=== PATIENT | male | born 1965 | race Caucasian/White ===

== ENCOUNTER 2016-12-06 10:40 | Inpatient (IN) | payer OTHER ==
[~2016-12-06] VITALS: Ht 170.2 cm; Wt 75.7 kg
[~2016-12-06 10:40] MED LIST: BNT10 PO; CYAN3INJ IM; FENO48TA9 PO; GLYB-108 PO
[2016-12-06] MEDS ORDERED: SODIUM CHLORIDE 0.9% 1000ML 1,000 ML IV SCH (11:09)
[2016-12-06] MEDS ORDERED: SODIUM CHLORIDE 0.9% 1000ML 1,000 ML IV STA (11:10)
[2016-12-06] MEDS ORDERED: ONDANSETRON INJ 2 MG/ML 2 ML VIAL IV STA (11:10)
[2016-12-06] MEDS ORDERED: KETOROLAC TROMETHAMINE 30 MG/ML VIAL IV STA (11:23)
[2016-12-06 11:30] LABS: BASO % 0.3 %; BASO ABS # 0.03 K/uL (0-0.2); COMPLETE YES; EOS % 1.4 %; HEMATOCRIT 47.8 % (42-52); IG% 0.4 %; LYMPH % 23.2 %; LYMPH ABS # 2.11 K/uL (1.2-3.4); MEAN CELL VOLUME 83.6 fL (80-100); MEAN CORPUSCULAR HGB CONC 34.7 g/dl (32-36); MONO % 7.6 %; NEUT % 67.1 %; PLATELET COUNT 208 K/uL (130-400); RED BLOOD COUNT 5.72 M/uL (4.7-6.1); WHITE BLOOD COUNT 9.08 K/uL (4.8-10.8)
[2016-12-06 11:39] LABS: PROTHROMBIN TIME (PATIENT) 10.2 SECONDS (9.0-12.0)
--- NOTE | 2016-12-06 11:46 | DIAGNOSTIC IMAGING REPORT ---
CHEST ONE VIEW PORTABLE CLINICAL HISTORY: Stroke SLURRED SPEECH. DOUBLE VISION. COMPARISON STUDY: No previous studies for comparison. FINDINGS: The cardiac and mediastinal contours are normal. There is no evidence of focal pulmonary consolidation. There is no evidence of failure. No pleural effusions are visualized.[ IMPRESSION: No active disease in the chest. Electronically signed by: Kali Eastman M.D. 12/06/2016 11:45 AM Dictated Date/Time: 12/06/2016 11:45 AM
[2016-12-06 11:47] LABS: ALT/SGPT 27 U/L (12-78); BLOOD UREA NITROGEN 13 mg/dl (7-18); BUN/CREATININE RATIO 11.5 (10-20); CARBON DIOXIDE 28 mmol/L (21-32); CHLORIDE 103 mmol/L (98-107); GLUCOSE 126 mg/dl (70-99); POTASSIUM 3.9 mmol/L (3.5-5.1); SODIUM 141 mmol/L (136-145)
[2016-12-06 11:48] LABS: CALCIUM 9.3 mg/dl (8.5-10.1)
--- NOTE | 2016-12-06 11:51 | DIAGNOSTIC IMAGING REPORT ---
CT HEAD WITHOUT CONTRAST (CT) CLINICAL HISTORY: Stroke TRAUMA. DOUBLE VISION. COMPARISON STUDY: No previous studies for comparison. TECHNIQUE: Axial CT of the brain is performed from the vertex to the skull base. IV contrast was not administered for this examination. CT DOSE: 690.05 mGycm FINDINGS: No intra or extra-axial mass lesions are visualized. There is no CT evidence of acute cortical infarction. There is no evidence of midline shift. There is no acute hemorrhage. No calvarial fractures are visualized. There are minimal white matter hypodensities likely on a small vessel basis. A left basal ganglia hypodensity, likely represents either a lacunar infarct or prominent CSF space. There is no evidence of pathologic ventricular dilatation. There is no evidence of acute sinusitis IMPRESSION: No acute intracranial findings Electronically signed by: Kali Eastman M.D. 12/06/2016 11:50 AM Dictated Date/Time: 12/06/2016 11:49 AM
[2016-12-06 11:52] LABS: ALKALINE PHOSPHATASE 84 U/L (45-117); AST/SGOT 19 U/L (15-37); CKMB/CK RATIO 0.9 (0-3.0)
[2016-12-06] MEDS ORDERED: ATOR10TA82 PO (11:58)
[2016-12-06] MEDS ORDERED: GLYB2.5T7 PO (11:58)
[2016-12-06] MEDS ORDERED: MoRPHine SULFATE 4 MG/ML 1 ML CARP\\VIAL IV STA (12:09)
[2016-12-06] MEDS ORDERED: ASPIRIN 325 MG ECTAB PO ONE (13:15)
[2016-12-06] MEDS ORDERED: ACET325T96 PO (13:59)
[2016-12-06] MEDS ORDERED: MULT-506 PO (13:59)
[2016-12-06] MEDS ORDERED: OMEG10007 PO (13:59)
[2016-12-06] MEDS ORDERED: DIPH25CA65 PO (13:59)
[2016-12-06 14:00] VITALS: O2SAT 98; Ht 170.2 cm; Wt 75.7 kg
[2016-12-06] MEDS ORDERED: GLUCOSE 40% GEL 15 GM TUBE PO PRN (14:00)
[2016-12-06] MEDS ORDERED: PHARMACIST DISCHARGE MED REC CONSULT PRN (14:00)
[2016-12-06] MEDS ORDERED: DEXTROSE 50% 50 ML SYR IV PRN (14:00)
[2016-12-06] MEDS ORDERED: GLUCAGON FOR INJ 1 MG VIAL SQ PRN (14:00)
[2016-12-06] MEDS ORDERED: GLUCOSE 10 TABS/TUBE PO PRN (14:00)
[2016-12-06] MEDS ORDERED: ONDANSETRON INJ 2 MG/ML 2 ML VIAL IV PRN (14:15)
[2016-12-06] MEDS ORDERED: ACETAMINOPHEN 325 MG TAB PO PRN (14:15)
[2016-12-06 14:39] VITALS: BP 123/65; PULSE 63; TEMP 36.6; O2SAT 99
[2016-12-06 14:44] LABS: ESTIMATED AVERAGE GLUCOSE 148 mg/dl; HA1C FLAG Normal (Normal)
--- NOTE | 2016-12-06 14:47 | History and Physical ---
History & Physical Date & Time of Service: Dec 06, 2016 at 14:06 Chief Complaint: Slurred Speech, Double Vision, Lethargy, Fall Primary Care Physician: Chapo Cifuentes PA-C History of Present Illness Source: patient, family (sister at bedside who is a nurse), other (no clinic records available) This is a 50 year old male with PMH of DM type 2, hyperlipidemia, fibromyalgia, and other problems listed below who presents to the ED for neurological symptoms. Patient states over past few months has gradually progressive balance difficulty with frequent falls, coordination problems, word finding difficulty dizziness, lethargy, weakness of the bilateral arms and legs, worsening of chronic bilateral LE numbness. He reports he is no longer able to drive. He also admits to few months of worsening diplopia, vertigo with positional change , tinnitus, lightheadedness/ pre-syncopal episodes, increasingly frequent frontal headaches. He reports frequent falls. Two weeks ago he injured his right shoulder catching himself from a fall and has right shoulder pain and weakness since that time. He reports hitting his head multiple times. He dropped a heavy object on top of his head and has c-spine pain since that time. He did not have evaluation/ imaging for his symptoms. He was seen at [facility] yesterday for labs and was told to come to the ER. Has occasional palpitations. He reports awakening from apnea episodes overnight and daytime somnolence. Has not been tested for sleep apnea. Has noted occasional throbbing pains in right lateral chest which come at random. Appetite is low. Has constipation with mild low abdominal cramping. Last BM 2d ago. Had hypoglycemia a few days ago which was symptomatic. He skips glyburide if BSG is low. He denies fever, syncope, hearing loss, cough, SOB, N/V, urinary changes, rash or tick bite. No known hx of arrhythmia. Past Medical/Surgical History Medical Problems: (1) Diabetes mellitus type 2 Status: Chronic (2) Dyslipidemia Status: Chronic (3) fibromyalgia Status: Chronic (4) History of air embolism Permanent Comment: in due to [place] accident Status: Chronic Surgical Problems: (1) H/O colonoscopy Status: Chronic (2) H/O eye surgery Permanent Comment: as and in 2007 x 2 Status: Chronic (3) H/O knee surgery Status: Chronic Family History Diabetes mellitus FATHER FH: CAD (coronary artery disease) FATHER Hypertension FATHER Social History Smoking Status: Never Smoker Alcohol Use: none Marital Status: Housing status: lives with family (currently staying with sister) Occupational Status: unemployed Immunizations History of Influenza Vaccine: No History of Tetanus Vaccine?: Yes History of Pneumococcal: No History of Hepatitis B Vaccine: Yes Multi-Drug Resistant Organisms History of MDRO: No Allergies Coded Allergies: No Known Allergies (Unverified , 12/06/16) Home Medications Scheduled Atorvastatin (Lipitor), 10 MG PO DAILY Fish Oil ([place]-3), 1 CAP PO DAILY Glyburide (Diabeta), 2.5 MG PO DAILY Multivitamin (Multivitamin), 1 TAB PO DAILY Scheduled PRN Acetaminophen Tab (Tylenol), 650 MG PO Q4 PRN for Pain Diphenhydramine Hcl (Benadryl Allergy), 1 CAP PO HS PRN for Sleep Review of Systems Ten systems reviewed and negative except as noted in HPI. Physical Exam Vital Signs Date Time Temp Pulse Resp B/P (MAP) Pulse Ox O2 Delivery O2 Flow Rate FiO2 12/06/16 13:06 58 12/06/16 12:42 55 18 120/80 98 Room Air 12/06/16 11:27 63 18 136/80 99 Room Air 12/06/16 11:21 99 Room Air 12/06/16 10:58 66 12/06/16 10:47 36.6 80 18 126/85 97 Room Air General Appearance: WD/WN, no apparent distress, + pertinent finding (alert 50 year old male, sister at bedside) Head: normocephalic, atraumatic Eyes: normal inspection, PERRL, EOMI, sclerae normal ENT: hearing grossly normal, pharynx normal Neck: supple, no carotid bruits, trachea midline, + pertinent finding (diffuse mild tenderness cervical paraspinal muscles. no pain in c-spine rotation. ) Respiratory/Chest: lungs clear, normal breath sounds, no respiratory distress, no accessory muscle use Cardiovascular: regular rate, rhythm, no murmur Abdomen/GI: normal bowel sounds, soft, + pertinent finding (minimally tender in LLQ) Back: normal inspection, + pertinent finding (no thoracic or lumbar spinal or paraspinal tendernes) Extremities/Musculoskelatal: no calf tenderness, no pedal edema, + pertinent finding (right anterior shoulder tender to palpation. + mild pain with R shoulder ROM. ) Neurologic/Psych: cooler servicer II-XII nml as tested, no motor/sensory deficits, alert, normal mood/affect, oriented x 3, + pertinent finding (mildly abnormal finger to nose testing) Skin: normal color, warm/dry Diagnostics Laboratory Results Results Past 24 Hours Test 12/06/16 11:09 12/06/16 11:20 12/06/16 11:21 12/06/16 13:51 Range/Units Bedside Glucose 121 70-99 mg/dl White Blood Count 9.08 4.8-10.8 K/uL Red Blood Count 5.72 4.7-6.1 M/uL Hemoglobin 16.6 14.0-18.0 g/dL Hematocrit 47.8 42-52 % Mean Corpuscular Volume 83.6 80-100 fL Mean Corpuscular Hemoglobin 29.0 25-34 pg Mean Corpuscular Hemoglobin Concent 34.7 32-36 g/dl Platelet Count 208 130-400 K/uL Mean Platelet Volume 11.0 7.4-10.4 fL Neutrophils (%) (Auto) 67.1 % Lymphocytes (%) (Auto) 23.2 % Monocytes (%) (Auto) 7.6 % Eosinophils (%) (Auto) 1.4 % Basophils (%) (Auto) 0.3 % Neutrophils # (Auto) 6.08 1.4-6.5 K/uL Lymphocytes # (Auto) 2.11 1.2-3.4 K/uL Monocytes # (Auto) 0.69 0.11-0.59 K/uL Eosinophils # (Auto) 0.13 0-0.5 K/uL Basophils # (Auto) 0.03 0-0.2 K/uL RDW Standard Deviation 36.8 36.4-46.3 fL RDW Coefficient of Variation 12.1 11.5-14.5 % Immature Granulocyte % (Auto) 0.4 % Immature Granulocyte # (Auto) 0.04 0.00-0.02 K/uL Prothrombin Time 10.2 9.0-12.0 SECONDS Prothromb Time International Ratio 1.0 0.9-1.1 Activated Partial Thromboplast Time 26.3 21.0-31.0 SECONDS Partial Thromboplastin Ratio 1.0 Sodium Level 141 136-145 mmol/L Potassium Level 3.9 3.5-5.1 mmol/L Chloride Level 103 98-107 mmol/L Carbon Dioxide Level 28 21-32 mmol/L Anion Gap 10.0 3-11 mmol/L Blood Urea Nitrogen 13 7-18 mg/dl Creatinine 1.10 0.60-1.40 mg/dl Est Creatinine Clear Calc Drug Dose 75.1 ml/min Estimated GFR () 90.2 Estimated GFR (Non- 77.9 BUN/Creatinine Ratio 11.5 10-20 Random Glucose 126 70-99 mg/dl Calcium Level 9.3 8.5-10.1 mg/dl Total Bilirubin 1.0 0.2-1 mg/dl Direct Bilirubin 0.2 0-0.2 mg/dl Aspartate Amino Transf (AST/SGOT) 19 15-37 U/L Alanine Aminotransferase (ALT/SGPT) 27 12-78 U/L Alkaline Phosphatase 84 45-117 U/L Total Creatine Kinase 148 39-308 U/L Creatine Kinase MB 1.4 0.5-3.6 ng/ml Creatine Kinase MB Ratio 0.9 0-3.0 Troponin I < 0.015 0-0.045 ng/ml Total Protein 7.6 6.4-8.2 gm/dl Albumin 4.0 3.4-5.0 gm/dl Lipase 130 73-393 U/L Lyme Disease IgM Antibody NEG NEG Bedside Prothrombin Time INR 1.0 0.9-1.[address] HEAD WITHOUT CONTRAST (CT) CLINICAL HISTORY: Stroke TRAUMA. DOUBLE VISION. COMPARISON STUDY: No previous studies for comparison. TECHNIQUE: Axial CT of the brain is performed from the vertex to the skull base. IV contrast was not administered for this examination. CT DOSE: 690.05 mGycm FINDINGS: No intra or extra-axial mass lesions are visualized. There is no CT evidence of acute cortical infarction. There is no evidence of midline shift. There is no acute hemorrhage. No calvarial fractures are visualized. There are minimal white matter hypodensities likely on a small vessel basis. A left basal ganglia hypodensity, likely represents either a lacunar infarct or prominent CSF space. There is no evidence of pathologic ventricular dilatation. There is no evidence of acute sinusitis IMPRESSION: No acute intracranial findings CHEST ONE VIEW PORTABLE CLINICAL HISTORY: Stroke SLURRED SPEECH. DOUBLE VISION. COMPARISON STUDY: No previous studies for comparison. FINDINGS: The cardiac and mediastinal contours are normal. There is no evidence of focal pulmonary consolidation. There is no evidence of failure. No pleural effusions are visualized.[ IMPRESSION: No active disease in the chest. EKG normal sinus rhythm, no ectopy, no ST or T wave abnormality Impression Assessment and Plan PROGRESSIVE NEUROLOGICAL SYMPTOMS Presents with few months worsening balance and coordination difficulty, speech difficulty, diplopia, general weakness, increasing bilateral LE numbness CT head- no acute findings, + minimal white matter hypodensities likely on a small vessel basis, + L basal ganglia hypodensity ?lacunar infarct or prominent CSF space Rule out CVA (risk factors DM, dyslipidemia) or other intracranial pathology, check for vitamin deficiencies- B12, thiamine, folate Check MRI brain with and without contrast, MRA brain, MRA neck, echo with bubble study, monitor for arrhythmia Give aspirin 325 mg today then 81 mg daily Increase atorvastatin to 40 mg for now; check fasting lipid panel in am Neuro checks Fall precautions PT, OT, speech evaluations Consult neurology- Isela Keane aware, appreciate input C-SPINE PAIN Check x-ray of c-spine RIGHT SHOULDER PAIN Check x-ray right shoulder DM TYPE 2 Hold glyburide during hospitalization Novolog sliding scale coverage Check A1c DYSLIPIDEMIA Atorvastatin increased to 40 mg Check fasting lipid panel CONSTIPATION Tried Metamucil at home Declines bowel regimen for now- wants to try high fiber food FULL CODE DVT PROPHYLAXIS Lovenox SQ DISPOSITION Living with sister Currently seeing DASH Cifuentes at [facility] Patient seen in collaboration with Dr. Nguyen. Please see his addendum Agree with above h and p.Briefly 50yM presents with ongoing neurological symptoms for several months but progressively getting worse. Says having balance issues, feeling dizzy, has ringing in ears, cannot hold things properly.HAs blurred vision. sometimes has weord finding diffuclty.[place] says he is mostly vegetarian and eats fish once in while and doesn't take dairy products. Was on vitamin b12 shots before but currently taking only multi vitamins.HAs chronic weakness in right upper extremity p/e Ge not in distress Cvs s1 and s2 heard no murmurs Rs cta b/l no added sounds Abd benign Emergency Telecommunications Dispatcher power in extremities 5/5 except in right uper extremity 3/5 no pronator drift finger nose test normal heel to morton test normal sensations intact a/p Progressive neurological symptoms reviewed ct head will f/u mri/mra head hx of vitamin b12 deficiency and mostly vegetarian will f/u vitamin b12, b1 and folate levels consult neurology pt/ot Hyperlipidemia on statin f/u lipid profile VTE Prophylaxis VTE Risk Assessment Done? Y/N: Yes Risk Level: Moderate
--- NOTE | 2016-12-06 15:47 | DIAGNOSTIC IMAGING REPORT ---
CERVICAL SPINE 3 VIEWS CLINICAL HISTORY: neck pain right shoulder pain COMPARISON STUDY: No previous studies for comparison. FINDINGS: The prevertebral soft tissues are normal. No fractures or subluxations are visualized. Minor degenerative changes are evident. IMPRESSION: Minor degenerative change. No fractures, subluxations, or destructive lesions are visualized. Electronically signed by: Kali Eastman M.D. 12/06/2016 3:46 PM Dictated Date/Time: 12/06/2016 3:45 PM
--- NOTE | 2016-12-06 15:48 | DIAGNOSTIC IMAGING REPORT ---
RIGHT SHOULDER MIN 2 VIEWS ROUTINE CLINICAL HISTORY: Right shoulder pain. COMPARISON: None FINDINGS: Alignment of the right shoulder is anatomic. Equivocal slight elevation of the distal right clavicle is likely within normal limits. There is moderate AC joint arthrosis. There is mild glenohumeral joint arthrosis. IMPRESSION: 1. No acute fracture. 2. Moderate right acromioclavicular joint osteoarthritis and mild glenohumeral osteoarthritis. Electronically signed by: Leeroy Venegas M.D. 12/06/2016 3:47 PM Dictated Date/Time: 12/06/2016 3:45 PM
[2016-12-06 16:00] VITALS: O2SAT 99
[2016-12-06] MEDS ORDERED: ENOXAPARIN 40 MG/0.4 ML SYR SC SCH (16:00)
[2016-12-06] MEDS ORDERED: LORAZEPAM 0.5 MG TAB ONE (16:29)
[2016-12-06] MEDS ORDERED: LORAZEPAM 0.5 MG TAB PO SCH (16:30)
--- NOTE | 2016-12-06 16:52 | Neurology Consultation ---
Neurology Consultation Date of Consultation: Dec 06, 2016. Attending Physician: Sheila Espinoza M.D. Primary Care Physician: Chapo Cifuentes PA-C Reason for Consultation: balance and sleep difficulties History of Present Illness Source: patient Tra is a 50 year old male with PMH - DM type 2, hyperlipidemia, fibromyalgia , He complains of balance issues over the past 2-3 months has gradually progressive balance difficulty with frequent falls, coordination problems, word finding difficulty dizziness, lethargy, weakness of the bilateral arms and legs , worsening of chronic bilateral UE/LE numbness. He is no longer driving due to the motion of the car causing dizziness. He has had episodes of double vision and blurred vision, vertigo with positional changes and motion, tinnitus ( approximately 4 years), lightheadedness/ pre-syncopal episodes, increasingly frequent frontal headaches. Two weeks ago he injured his right shoulder catching himself from a fall and has right shoulder pain and weakness since that time. He dropped a heavy object on top of his head and has c-spine pain since that time. He was not evaluated for the injury. He was seen at [facility] yesterday for labs and was told to come to the ER. He has episodes of apnea and then day time drowsiness and lethargy. His appetite is not good and he gets easily constipated although he is eating his lunch without difficulty. Had hypoglycemia a few days ago which was symptomatic. He denies fever, syncope, hearing loss, cough, SOB, N/V, urinary changes, rash or tick bite. no family history of neurologic disease, stroke. he states he has all the symptoms of a chiari malformation. Social History Smoking Status: Never smoker Alcohol Use: none Marital Status: Housing Status: lives with family Occupation Status: unemployed Allergies Coded Allergies: No Known Allergies (Unverified , 12/06/16) Current Inpatient Medications Current Inpatient Medications Medications (Trade) Dose Ordered Sig/Michelle Route Start Time Stop Time Status Last Admin Dose Admin Atorvastatin Calcium (Lipitor Tab) 40 mg HS PO 12/06/16 21:00 01/05/17 20:59 Aspirin (Ecotrin Tab) 81 mg QAM PO 12/07/16 09:00 01/06/17 08:59 Miscellaneous Information (Pharmacist Discharge Med Rec Consult) 1 ea UD PRN N/A 12/06/16 14:00 01/05/17 13:59 Fish Oil ([place]-3 (Purified Fish Oil) Cap) 1 gm DAILY PO 12/07/16 09:00 01/06/17 08:59 Multivitamins (Multivitamin Tab) 1 tab DAILY PO 12/07/16 09:00 01/06/17 08:59 Insulin Aspart (novoLOG ASPART) SLIDING SCALE If C... ACHS SC 12/06/16 16:30 01/05/17 16:29 Glucose (Glucose 40% Gel) 15-30 GRAMS 15 GRAMS... UD PRN PO 12/06/16 14:00 01/05/17 13:59 Glucose (Glucose Chew Tab) 4-8 Tablets 4 Tabl... UD PRN PO 12/06/16 14:00 01/05/17 13:59 Dextrose (Dextrose 50% 50ML Syringe) 25-50ML OF 50% DW IV FOR... UD PRN IV 12/06/16 14:00 01/05/17 13:59 Glucagon (Glucagon Inj) 1 mg UD PRN SQ 12/06/16 14:00 01/05/17 13:59 Enoxaparin Sodium (Lovenox Inj) 40 mg Q24H SC 12/06/16 16:00 01/05/17 15:59 Acetaminophen (Tylenol Tab) 650 mg Q4H PRN PO 12/06/16 14:15 01/05/17 14:14 Ondansetron HCl (Zofran Inj) 4 mg Q6H PRN IV 12/06/16 14:15 01/05/17 14:14 Physical Exam Vital Signs (Past 24 Hrs): Date Time Temp Pulse Resp B/P (MAP) Pulse Ox O2 Delivery O2 Flow Rate FiO2 12/06/16 14:39 36.6 63 18 123/65 (84) 99 Room Air 12/06/16 14:27 66 15 124/80 98 Room Air 12/06/16 14:00 98 Room Air 12/06/16 13:06 58 12/06/16 12:42 55 18 120/80 98 Room Air 12/06/16 11:27 63 18 136/80 99 Room Air 12/06/16 11:21 99 Room Air 12/06/16 10:58 66 12/06/16 10:47 36.6 80 18 126/85 97 Room Air Physical Exam: Constitutional: appearance nourished, healthy and normal Ears, Nose, Mouth and Throat: mucous membranes moist, no injection and skin normal, eyes normal Cardiovascular: normal S-1 and S-2 and regular rate and rhythm Respiratory: clear to auscultation (CTA) and no rales, rhonchi or wheeze Musculoskeletal: no peripheral edema and good distal pulses Skin: no stigmata of neurocutaneous disease noted and normal and intact Eyes: extraocular muscles intact (EOMI) and pupils equal, round and reactive to light (PERRL) NEUROLOGIC EXAMINATION: Mental status: Alert and interactive Oriented to full date and location Oriented to person Speech fluent with no evidence of aphasia Cranial Nerves smile eye brow raise symmetric, tongue midline Reflexes: Deep tendon reflexes were symmetrical and graded 2/5. Plantar responses were flexor. Sensory: decreased sensation to pin prick inner calf and left arm, cool touch bilaterally decreased inner calf thigh, GT proprioception intact bilaterally Adelia bilaterally with no nystagmus or reproduction of symptoms Coordination: Romberg absent Gait/Stance: Posture normal. stands without assistance tandem gait, good arm swing Motor: Negative for pronator drift of out stretched arms with eyes closed. Strength: biceps triceps deltoid hand lead printer 5/5 bilaterally, hip flex 5/5 bilaterally Laboratory Results Past 24 Hours: 12/06/16 11:20 Red Blood Count 5.72, Mean Corpuscular Volume 83.6, Mean Corpuscular Hemoglobin 29.0, Mean Corpuscular Hemoglobin Concent 34.7, Mean Platelet Volume 11.0, Neutrophils (%) (Auto) 67.1, Lymphocytes (%) (Auto) 23.2, Monocytes (%) (Auto) 7.6, Eosinophils (%) (Auto) 1.4, Basophils (%) (Auto) 0.3, Neutrophils # (Auto) 6.08, Lymphocytes # (Auto) 2.11, Monocytes # (Auto) 0.69, Eosinophils # (Auto) 0.13, Basophils # (Auto) 0.03 12/06/16 11:20 Test 12/06/16 11:09 12/06/16 11:20 12/06/16 11:21 12/06/16 15:13 Bedside Glucose 121 mg/dl (70-99) White Blood Count 9.08 K/uL (4.8-10.8) Red Blood Count 5.72 M/uL (4.7-6.1) Hemoglobin 16.6 g/dL (14.0-18.0) Hematocrit 47.8 % (42-52) Mean Corpuscular Volume 83.6 fL (80-100) Mean Corpuscular Hemoglobin 29.0 pg (25-34) Mean Corpuscular Hemoglobin Concent 34.7 g/dl (32-36) Platelet Count 208 K/uL (130-400) Mean Platelet Volume 11.0 fL (7.4-10.4) Neutrophils (%) (Auto) 67.1 % Lymphocytes (%) (Auto) 23.2 % Monocytes (%) (Auto) 7.6 % Eosinophils (%) (Auto) 1.4 % Basophils (%) (Auto) 0.3 % Neutrophils # (Auto) 6.08 K/uL (1.4-6.5) Lymphocytes # (Auto) 2.11 K/uL (1.2-3.4) Monocytes # (Auto) 0.69 K/uL (0.11-0.59) Eosinophils # (Auto) 0.13 K/uL (0-0.5) Basophils # (Auto) 0.03 K/uL (0-0.2) RDW Standard Deviation 36.8 fL (36.4-46.3) RDW Coefficient of Variation 12.1 % (11.5-14.5) Immature Granulocyte % (Auto) 0.4 % Immature Granulocyte # (Auto) 0.04 K/uL (0.00-0.02) Prothrombin Time 10.2 SECONDS (9.0-12.0) Prothromb Time International Ratio 1.0 (0.9-1.1) Activated Partial Thromboplast Time 26.3 SECONDS (21.0-31.0) Partial Thromboplastin Ratio 1.0 Anion Gap 10.0 mmol/L (3-11) Est Creatinine Clear Calc Drug Dose 75.1 ml/min Estimated GFR () 90.2 Estimated GFR (Non- 77.9 BUN/Creatinine Ratio 11.5 (10-20) Estimated Average Glucose 148 mg/dl Hemoglobin A1c 6.8 % (4.5-5.6) Calcium Level 9.3 mg/dl (8.5-10.1) Total Bilirubin 1.0 mg/dl (0.2-1) Direct Bilirubin 0.2 mg/dl (0-0.2) Aspartate Amino Transf (AST/SGOT) 19 U/L (15-37) Alanine Aminotransferase (ALT/SGPT) 27 U/L (12-78) Alkaline Phosphatase 84 U/L (45-117) Total Creatine Kinase 148 U/L (39-308) Creatine Kinase MB 1.4 ng/ml (0.5-3.6) Creatine Kinase MB Ratio 0.9 (0-3.0) Troponin I < 0.015 ng/ml (0-0.045) Total Protein 7.6 gm/dl (6.4-8.2) Albumin 4.0 gm/dl (3.4-5.0) Lipase 130 U/L (73-393) Lyme Disease IgM Antibody NEG (NEG) Bedside Prothrombin Time INR 1.0 (0.9-1.1) Imaging CT head - no acute findings Impression 50 year old male with multiple neurologic complains -imaging and labs pending Plan 1. MRI with and without contrast- for any structure issues 2. MRA head and neck- for vascular reasons for dizziness 3. c spine MRI - for any compression causing weakness, numbness, tingling 4. acetylcholine receptor AB, Lyme titer 5. out patient work up with rheumatology for fibromyalgia 6. DM control to avoid any further small fiber disease 7. out patient ophthalmology for any structure issues or vascular issues from DM query blurred?double vision? I have seen and discussed above patient with Dr Jose Ramon Harvey, neurology I have seen this man and examined him briefly en rout to the mri scan historyis longstanding with a host of quasi neurological complaints and with some history to suggest a possible diabetic related small fibe polyneueropathy at most With the variable diplopia and fluctuating weakness and fleeting paresthesias he neds a host of diagnostic studies including nimco of brain and cervical spine, workup for lyme,various connective tissue immunological disorders, myasthenia gravis etc but on exam I am not impressed with any fixed deficits other than perhaps some small fiber sensoy loss. 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
--- NOTE | 2016-12-06 17:00 | EMERGENCY ROOM VISIT NOTE ---
History Report prepared by Viola: Liz Christianson Under the Supervision of: Dr. Tre Abraham D.O. First contact with patient: 10:56 Chief Complaint: STROKE SYMPTOMS Stated Complaint: SLURRED SPEECH, DOUBLE VISION, LETHARGY, FALL History of Present Illness The patient is a 50 year old male who presents to the Emergency Room with complaints of intermittent slurred speech, lethargy, and visual symptoms for the past few months worsening over the past couple of weeks. He has also been experiencing lightheadedness that he states feels like he is going to pass out. He denies feeling like the room is spinning. He notes experiencing this lightheadedness when he is driving in a car around a big bend. These symptoms are worse with movement and changing positions. The patient also reports pain in his arms, legs, and joints. He notes speech stuttering, headaches, double vision, and "equilibrium issues." The equilibrium issues are worse with changing positions and alleviated with staying still. The patient states that his "proprioception is off" and as a result he has been experiencing frequent falls, with his most recent fall occurring yesterday. He fell about 2 months ago and landed on his right arm, since that episode he has been having pain and weakness in the right arm. The patient denies any other focal weakness. He denies cough, rhinorrhea, sore throat, trouble swallowing, and back pain. He has not seen any one for these symptoms because he does not currently have a PCP. The patient has a history of fibromyalgia. He denies any recent changes to his medications. He rates his current pain as a 6/10 in severity. Source of History: patient Onset: a few months ago Position: other (global) Symptom Intensity: 6/10 Quality: other (lightheadedness) Timing: intermittent, worsening Modifying Factors (Worsening): movement Modifying Factors (Relieving): rest Associated Symptoms: + headache, + fatigue, + weakness, No sorethroat, No cough, No back pain Note: Pt notes slurred and stuttering speech, lethargy, visual symptoms, and lightheadedness. Pt notes pain in arms, legs, and joints. Review of Systems See HPI for pertinent positives & negatives. A total of 10 systems reviewed and were otherwise negative. Past Medical & Surgical Medical Problems: (1) Diabetes mellitus type 2 (2) Dyslipidemia (3) fibromyalgia (4) History of air embolism (5) Slurred speech Surgical Problems: (1) H/O colonoscopy (2) H/O eye surgery (3) H/O knee surgery Family History No pertinent history stated. Social History Smoking Status: Never Smoker Alcohol Use: none Drug Use: none Marital Status: Housing Status: lives with family Occupation Status: unemployed Current/Historical Medications Scheduled Atorvastatin (Lipitor), 10 MG PO DAILY Fish Oil ([place]-3), 1 CAP PO DAILY Glyburide (Diabeta), 2.5 MG PO DAILY Multivitamin (Multivitamin), 1 TAB PO DAILY Scheduled PRN Acetaminophen Tab (Tylenol), 650 MG PO Q4 PRN for Pain Diphenhydramine Hcl (Benadryl Allergy), 1 CAP PO HS PRN for Sleep Allergies Coded Allergies: No Known Allergies (Unverified , 12/06/16) Physical Exam Vital Signs Date Time Temp Pulse Resp B/P (MAP) Pulse Ox O2 Delivery O2 Flow Rate FiO2 12/06/16 12:42 55 18 120/80 98 Room Air 12/06/16 11:27 63 18 136/80 99 Room Air 12/06/16 11:21 99 Room Air 12/06/16 10:58 66 12/06/16 10:47 36.6 80 18 126/85 97 Room Air Physical Exam GENERAL: alert, sitting up in bed, disheveled, anxious appearing, appearing, well nourished, no distress, non-toxic EYE EXAM: normal conjunctiva, PERRL and EOM's intact OROPHARYNX: no exudate, no erythema, lips, buccal mucosa, and tongue normal and mucous membranes are moist NECK: supple, no nuchal rigidity, no adenopathy, non-tender LUNGS: Clear to auscultation. Normal chest wall mechanics HEART: no murmurs, S1 normal and S2 normal ABDOMEN: abdomen soft, non-tender, normo-active bowel sounds, no masses, no rebound or guarding. BACK: Back is symmetrical on inspection and there is no deformity, no midline tenderness, no CVA tenderness. SKIN: no rashes and no bruising UPPER EXTREMITIES: upper extremities are grossly normal. Weakness with grasp, flexion and extension of the right upper extremity. LOWER EXTREMITIES: No pitting edema. NEURO EXAM: Normal sensorium, cranial nerves II-XII intact, normal speech, no weakness of arms, no weakness of legs. No drift. unable to touch finger to finger. Rapid alternating movements of the upper extremities intact. Gross sensation intact. Medical Decision & Procedures ER Provider Diagnostic Interpretation: Radiology results as stated below per my review and the radiologist's interpretation: CT HEAD WITHOUT CONTRAST (CT) CLINICAL HISTORY: Stroke TRAUMA. DOUBLE VISION. COMPARISON STUDY: No previous studies for comparison. TECHNIQUE: Axial CT of the brain is performed from the vertex to the skull base. IV contrast was not administered for this examination. CT DOSE: 690.05 mGycm FINDINGS: No intra or extra-axial mass lesions are visualized. There is no CT evidence of acute cortical infarction. There is no evidence of midline shift. There is no acute hemorrhage. No calvarial fractures are visualized. There are minimal white matter hypodensities likely on a small vessel basis. A left basal ganglia hypodensity, likely represents either a lacunar infarct or prominent CSF space. There is no evidence of pathologic ventricular dilatation. There is no evidence of acute sinusitis IMPRESSION: No acute intracranial findings Electronically signed by: Kali Eastman M.D. 12/06/2016 11:50 AM Dictated Date/Time: 12/06/2016 11:49 AM CHEST ONE VIEW PORTABLE CLINICAL HISTORY: Stroke SLURRED SPEECH. DOUBLE VISION. COMPARISON STUDY: No previous studies for comparison. FINDINGS: The cardiac and mediastinal contours are normal. There is no evidence of focal pulmonary consolidation. There is no evidence of failure. No pleural effusions are visualized.[ IMPRESSION: No active disease in the chest. Electronically signed by: Kali Eastman M.D. 12/06/2016 11:45 AM Dictated Date/Time: 12/06/2016 11:45 AM Laboratory Results 12/06/16 11:20 Red Blood Count 5.72, Mean Corpuscular Volume 83.6, Mean Corpuscular Hemoglobin 29.0, Mean Corpuscular Hemoglobin Concent 34.7, Mean Platelet Volume 11.0, Neutrophils (%) (Auto) 67.1, Lymphocytes (%) (Auto) 23.2, Monocytes (%) (Auto) 7.6, Eosinophils (%) (Auto) 1.4, Basophils (%) (Auto) 0.3, Neutrophils # (Auto) 6.08, Lymphocytes # (Auto) 2.11, Monocytes # (Auto) 0.69, Eosinophils # (Auto) 0.13, Basophils # (Auto) 0.03 12/06/16 11:20 Test 12/06/16 11:09 12/06/16 11:20 12/06/16 11:21 Bedside Glucose 121 mg/dl (70-99) White Blood Count 9.08 K/uL (4.8-10.8) Red Blood Count 5.72 M/uL (4.7-6.1) Hemoglobin 16.6 g/dL (14.0-18.0) Hematocrit 47.8 % (42-52) Mean Corpuscular Volume 83.6 fL (80-100) Mean Corpuscular Hemoglobin 29.0 pg (25-34) Mean Corpuscular Hemoglobin Concent 34.7 g/dl (32-36) Platelet Count 208 K/uL (130-400) Mean Platelet Volume 11.0 fL (7.4-10.4) Neutrophils (%) (Auto) 67.1 % Lymphocytes (%) (Auto) 23.2 % Monocytes (%) (Auto) 7.6 % Eosinophils (%) (Auto) 1.4 % Basophils (%) (Auto) 0.3 % Neutrophils # (Auto) 6.08 K/uL (1.4-6.5) Lymphocytes # (Auto) 2.11 K/uL (1.2-3.4) Monocytes # (Auto) 0.69 K/uL (0.11-0.59) Eosinophils # (Auto) 0.13 K/uL (0-0.5) Basophils # (Auto) 0.03 K/uL (0-0.2) RDW Standard Deviation 36.8 fL (36.4-46.3) RDW Coefficient of Variation 12.1 % (11.5-14.5) Immature Granulocyte % (Auto) 0.4 % Immature Granulocyte # (Auto) 0.04 K/uL (0.00-0.02) Prothrombin Time 10.2 SECONDS (9.0-12.0) Prothromb Time International Ratio 1.0 (0.9-1.1) Activated Partial Thromboplast Time 26.3 SECONDS (21.0-31.0) Partial Thromboplastin Ratio 1.0 Anion Gap 10.0 mmol/L (3-11) Est Creatinine Clear Calc Drug Dose 75.1 ml/min Estimated GFR () 90.2 Estimated GFR (Non- 77.9 BUN/Creatinine Ratio 11.5 (10-20) Estimated Average Glucose 148 mg/dl Hemoglobin A1c 6.8 % (4.5-5.6) Calcium Level 9.3 mg/dl (8.5-10.1) Total Bilirubin 1.0 mg/dl (0.2-1) Direct Bilirubin 0.2 mg/dl (0-0.2) Aspartate Amino Transf (AST/SGOT) 19 U/L (15-37) Alanine Aminotransferase (ALT/SGPT) 27 U/L (12-78) Alkaline Phosphatase 84 U/L (45-117) Total Creatine Kinase 148 U/L (39-308) Creatine Kinase MB 1.4 ng/ml (0.5-3.6) Creatine Kinase MB Ratio 0.9 (0-3.0) Troponin I < 0.015 ng/ml (0-0.045) Total Protein 7.6 gm/dl (6.4-8.2) Albumin 4.0 gm/dl (3.4-5.0) Lipase 130 U/L (73-393) Bedside Prothrombin Time INR 1.0 (0.9-1.1) Laboratory results per my review. Medications Administered Medications (Trade) Dose Ordered Sig/Michelle Route Start Time Stop Time Status Last Admin Dose Admin Sodium Chloride 1,000 ml @ 50 mls/hr Q20H IV 12/06/16 11:09 12/06/16 15:02 DC 12/06/16 11:09 50 MLS/HR Sodium Chloride 1,000 ml @ 999 mls/hr Q1H1M STAT IV 12/06/16 11:10 12/06/16 12:10 DC 12/06/16 11:10 999 MLS/HR Ondansetron HCl (Zofran Inj) 4 mg NOW STAT IV 12/06/16 11:10 12/06/16 11:12 DC 12/06/16 11:10 4 MG Ketorolac Tromethamine (Toradol Inj) 30 mg NOW STAT IV 12/06/16 11:23 12/06/16 11:24 DC 12/06/16 11:23 30 MG Morphine Sulfate (MoRPHine SULFATE INJ) 4 mg NOW STAT IV 12/06/16 12:09 12/06/16 12:10 DC 12/06/16 12:32 4 MG ECG Indication: weakness Rate (beats per minute): 62 Rhythm: normal sinus Findings: no ectopy, other (normal axis) ED Course ED COURSE: Vital signs were reviewed and showed hypertensive. The patients medical record was reviewed The above diagnostic studies were performed and reviewed. ED treatments and interventions as stated above. 1056: The patient was evaluated in room C3. A complete history and physical examination was performed. 1109: NSS 1000 ml @ 50 mls/hr IV 1110: Zofran 4 mg IV, NSS 1000 ml @ 999 mls/hr IV 1123: Toradol 30 mg IV 1209: Morphine sulfate 4 mg IV 1227: Upon reevaluation, the patient is resting comfortably. I discussed my findings with the patient and he understands and agrees with the treatment plan. Based on the patients age, coexisting illnesses, exam and lab findings the decision to treat as an inpatient was made. The patient remained stable while under my care. The patient will be evaluated for further management. 1253: I reviewed the patient's case with Arabella Cabrera PA-C. The [facility] will evaluate the patient for further management. 1315: Aspirin 325 mg PO Medical Decision Differential Diagnosis includes but is not limited to ischemic Stroke, hemorrhagic stroke, bells palsy, mass, neoplasm, migraine headache, seizure, subarachnoid hemorrhage, TIA, and transient global amnesia. Medication Reconciliation: I attest that I have personally reviewed the patient' s current medication list. Patient is a 50-year-old male who presents the ER with vertiginous symptoms that has been off-and-on for the past 6 months associated with diffuse myalgias , paresthesias, arthralgias, right upper extremity weakness, persistent and worsening falls, and a headache. CBC along with BMP, LFTs and troponin was negative. Patient is completely neurologically intact with exception of the finger to nose. CT head was negative. He does have weakness in the right upper extremity although he notes this started after a fall. I do favor this likely muscle skeletal. I question whether his symptoms are secondary to MS as I do not believe this is a stroke although this is possible if it was stuttering. Patient was updated regards to his findings and is admitted to internal medicine for further workup and evaluation by neurology. Consults Time Called: 1250 Consulting Physician: Arabella Cabrera PA-C Returned Call: 1253 I reviewed the patient's case with Arabella Cabrera PA-C. The [facility] will evaluate the patient for further management. Impression Primary Impression: Dysarthria Additional Impressions: Ambulatory dysfunction Recurrent falls Arthralgia Myalgia Scribe Attestation The scribe's documentation has been prepared under my direction and personally reviewed by me in its entirety. I confirm that the note above accurately reflects all work, treatment, procedures, and medical decision making performed by me. Departure Information Dispostion Being Evaluated By Hospitalist Referrals Chapo Cifuentes PA-C (PCP) Patient Instructions My [facility] Problem Qualifiers Additional Impressions: Arthralgia Joint pain location: unspecified Qualified Codes: M25.50 - Pain in unspecified joint
[2016-12-06] MEDS: INSULIN ASPART 100 UNITS/ML 3 ML PEN SC SCH ×2 (18:04→21:00)
--- NOTE | 2016-12-06 18:11 | DIAGNOSTIC IMAGING REPORT ---
MRI OF THE BRAIN WITHOUT AND WITH IV CONTRAST CLINICAL HISTORY: Stroke mental status change COMPARISON STUDY: No previous studies for comparison. TECHNIQUE: Utilizing a 1.5 Breonna magnet and dedicated coil, multiplanar, multiecho imaging of the brain was performed pre and postcontrast administration. IV administration of 8.5 mL of Gadavist contrast was uneventful. FINDINGS: No evidence for an acute ischemic event. Minimal chronic small vessel change of periventricular deep white matter regions. Ventricular system is midline. Internal auditory canals are symmetric. IMPRESSION: No acute process. Negative study for age. Electronically signed by: Taran Farias M.D. 12/06/2016 6:09 PM Dictated Date/Time: 12/06/2016 6:09 PM
--- NOTE | 2016-12-06 18:13 | DIAGNOSTIC IMAGING REPORT ---
Brain MRA HISTORY: Mental status change Stroke - Attention to [place] TECHNIQUE: 3-D [id number] MRA of the brain was performed without contrast. COMPARISON STUDY: None. FINDINGS: Visualized intracranial internal carotid arteries, distal vertebral arteries, and basilar artery are widely patent. There is no significant stenosis, occlusion, or aneurysm seen within the bilateral ACAs, MCAs, or medical editor. IMPRESSION: No significant stenosis, occlusion, or aneurysm within the [place]. Electronically signed by: Taran Farias M.D. 12/06/2016 6:11 PM Dictated Date/Time: 12/06/2016 6:10 PM
--- NOTE | 2016-12-06 18:14 | DIAGNOSTIC IMAGING REPORT ---
NECK MRA HISTORY: Mental status change Stroke TECHNIQUE: [id number]-ly-[id number] and gadolinium-enhanced MRA of the neck was performed both before and after the intravenous administration of contrast. All measurements were calculated based on NASCET criteria. COMPARISON STUDY: None. FINDINGS: The aortic arch and proximal great vessels are widely patent. There is no significant stenosis, occlusion, or dissection identified within the bilateral common carotid, internal carotid, or vertebral arteries. IMPRESSION: No significant stenosis, occlusion, or dissection identified within the carotid or vertebral arteries. Electronically signed by: Taran Farias M.D. 12/06/2016 6:13 PM Dictated Date/Time: 12/06/2016 6:11 PM
[2016-12-06 19:27] VITALS: BP 120/73; PULSE 82; TEMP 36.4; O2SAT 96
[2016-12-06 20:00] VITALS: O2SAT 96
[2016-12-06 20:10] LABS: LYME DISEASE AB IGG NEG (NEG); LYME DISEASE AB IGM NEG (NEG)
[2016-12-06] MEDS: HYDROmorphone INJ 1 MG/ML SYR IV PRN (21:13)
[2016-12-06] MEDS: ATORVASTATIN 40 MG TAB PO SCH (21:15)
[2016-12-06 21:48] LABS: URINE APPEARANCE CLEAR (CLEAR); URINE BILIRUBIN NEG (NEG); URINE COLOR YELLOW; URINE NITRITE NEG (NEG); URINE PH 5.5 (4.5-7.5); URINE SPECIFIC GRAVITY 1.027 (1.000-1.030); UROBILINOGEN NEG (NEG); ZZUR CULT IF INDIC CLEAN CATCH NO
[2016-12-06 21:53] LABS: MANUAL MICROSCOPIC REQUIRED? NO; REVIEW REQ? NO
[2016-12-06 22:06] LABS: BENZODIAZEPINE, URINE NEG (NEG); COCAINE,URINE NEG (NEG); PHENCYCLIDINE, URINE NEG (NEG)
[2016-12-06 23:03] VITALS: BP 112/71; PULSE 74; TEMP 36.7; O2SAT 95
[2016-12-07] VITALS (8 sets, daily range): BP systolic 95–137; BP diastolic 62–81; PULSE 57–79; TEMP 36.5–36.8; O2SAT 93–98
[2016-12-07] LABS: RHEUMATOID FACTOR < 10.0 U/mL (0-15)
[2016-12-07] MEDS: HYDROmorphone INJ 1 MG/ML SYR IV PRN (01:30)
[2016-12-07 06:38] LABS: BASO % 0.3 %; BASO ABS # 0.02 K/uL (0-0.2); COMPLETE YES; EOS % 2.6 %; HEMATOCRIT 40.7 % (42-52); IG% 0.3 %; LYMPH % 28.2 %; LYMPH ABS # 2.05 K/uL (1.2-3.4); MEAN CELL VOLUME 84.8 fL (80-100); MEAN CORPUSCULAR HEMOGLOBIN 28.5 pg (25-34); MEAN CORPUSCULAR HGB CONC 33.7 g/dl (32-36); MEAN PLATELET VOLUME 11.2 fL (7.4-10.4); MONO % 7.4 %; NEUT % 61.2 %; PLATELET COUNT 164 K/uL (130-400); WHITE BLOOD COUNT 7.28 K/uL (4.8-10.8)
[2016-12-07 07:15] LABS: BUN/CREATININE RATIO 15.2 (10-20); CALCIUM 8.2 mg/dl (8.5-10.1); CREATININE 0.92 mg/dl (0.60-1.40)
[2016-12-07 07:18] LABS: CHOLESTEROL/HDL RATIO 3.6
[2016-12-07] MEDS: INSULIN ASPART 100 UNITS/ML 3 ML PEN SC SCH ×3 (08:52→21:00)
[2016-12-07] MEDS: OMEGA-3 (PURIFIED FISH OIL) 1 GM CAP PO SCH (08:54)
[2016-12-07] MEDS: MULTIVITAMIN TAB PO SCH (08:54)
[2016-12-07] MEDS: ASPIRIN 81 MG ECTAB PO SCH (08:54)
--- NOTE | 2016-12-07 08:56 | Progress Note ---
Internal Med Progress Note Date of Service: Dec 07, 2016. Provider Documentation: SUBJECTIVE: mention of being still being off balance has been walking independently in hallway PT eval requested for Adelia maneuver all neuro imaging been negative stable to be discharged home today OBJECTIVE: Vital Signs-as noted below Exam: General-no sign of distress Eyes-sclera non icteric ENT-NAD Neck-no JVD Lungs-CTA Heart-regular S1/S2 Abdomen-soft, non tender Extremities-no lower ext edema Neuro-no focal neurological deficit Lab data as noted below. ASSESSMENT & PLAN: PROGRESSIVE NEUROLOGICAL SYMPTOMS no evidence of CVA, no neurological deficit noted speech is fluent , has been ambulating independently CT head- no acute findings, + minimal white matter hyperdensities likely on a small vessel basis, + L basal ganglia hypodensity ?lacunar infarct or prominent CSF space MRI brain with and without contrast, MRA brain, MRA neck-normal study Consult neurology- Isela Keane aware, appreciate input possible fibromyalgia no further neurological work up needed recommend out pt follow up with Rheumatology C-SPINE PAIN x-ray of c-spine-no acute change IMPRESSION: Minor degenerative change. No fractures, subluxations, or destructive lesions are visualized. RIGHT SHOULDER PAIN x-ray right shoulder-no acute change 1. No acute fracture. 2. Moderate right acromioclavicular joint osteoarthritis and mild glenohumeral osteoarthritis. DM TYPE 2 Hold glyburide during hospitalization-will be resumed on discharge NovoLog sliding scale coverage DYSLIPIDEMIA cont statin fasting lipid panel; LDL 55 ( with in goal < 100 ) CONSTIPATION Tried Metamucil at home Declines bowel regimen for now- wants to try high fiber food FULL CODE DVT PROPHYLAXIS Lovenox SQ DISPOSITION Living with sister Currently seeing DASH Cifuentes at [facility] medically stable to be discharge home today Vital Signs: Date Time Temp Pulse Resp B/P (MAP) Pulse Ox O2 Delivery O2 Flow Rate FiO2 12/07/16 07:16 36.8 58 14 125/78 (94) 97 12/07/16 04:59 36.5 57 20 117/76 (90) 97 Room Air 12/07/16 04:05 Room Air 12/07/16 00:05 Room Air 12/06/16 23:03 36.7 74 18 112/71 (85) 95 Room Air 12/06/16 20:00 96 Room Air 12/06/16 19:27 36.4 82 16 120/73 (89) 96 Room Air 12/06/16 16:00 99 Room Air 12/06/16 14:39 36.6 63 18 123/65 (84) 99 Room Air 12/06/16 14:27 66 15 124/80 98 Room Air 12/06/16 14:00 98 Room Air 12/06/16 13:06 58 12/06/16 12:42 55 18 120/80 98 Room Air 12/06/16 11:27 63 18 136/80 99 Room Air 12/06/16 11:21 99 Room Air 12/06/16 10:58 66 12/06/16 10:47 36.6 80 18 126/85 97 Room Air Lab Results: Results Past 24 Hours Test 12/06/16 11:09 12/06/16 11:20 12/06/16 11:21 12/06/16 15:13 Range/Units Bedside Glucose 121 70-99 mg/dl White Blood Count 9.08 4.8-10.8 K/uL Red Blood Count 5.72 4.7-6.1 M/uL Hemoglobin 16.6 14.0-18.0 g/dL Hematocrit 47.8 42-52 % Mean Corpuscular Volume 83.6 80-100 fL Mean Corpuscular Hemoglobin 29.0 25-34 pg Mean Corpuscular Hemoglobin Concent 34.7 32-36 g/dl Platelet Count 208 130-400 K/uL Mean Platelet Volume 11.0 7.4-10.4 fL Neutrophils (%) (Auto) 67.1 % Lymphocytes (%) (Auto) 23.2 % Monocytes (%) (Auto) 7.6 % Eosinophils (%) (Auto) 1.4 % Basophils (%) (Auto) 0.3 % Neutrophils # (Auto) 6.08 1.4-6.5 K/uL Lymphocytes # (Auto) 2.11 1.2-3.4 K/uL Monocytes # (Auto) 0.69 0.11-0.59 K/uL Eosinophils # (Auto) 0.13 0-0.5 K/uL Basophils # (Auto) 0.03 0-0.2 K/uL RDW Standard Deviation 36.8 36.4-46.3 fL RDW Coefficient of Variation 12.1 11.5-14.5 % Immature Granulocyte % (Auto) 0.4 % Immature Granulocyte # (Auto) 0.04 0.00-0.02 K/uL Prothrombin Time 10.2 9.0-12.0 SECONDS Prothromb Time International Ratio 1.0 0.9-1.1 Activated Partial Thromboplast Time 26.3 21.0-31.0 SECONDS Partial Thromboplastin Ratio 1.0 Sodium Level 141 136-145 mmol/L Potassium Level 3.9 3.5-5.1 mmol/L Chloride Level 103 98-107 mmol/L Carbon Dioxide Level 28 21-32 mmol/L Anion Gap 10.0 3-11 mmol/L Blood Urea Nitrogen 13 7-18 mg/dl Creatinine 1.10 0.60-1.40 mg/dl Est Creatinine Clear Calc Drug Dose 75.1 ml/min Estimated GFR () 90.2 Estimated GFR (Non- 77.9 BUN/Creatinine Ratio 11.5 10-20 Random Glucose 126 70-99 mg/dl Estimated Average Glucose 148 mg/dl Hemoglobin A1c 6.8 4.5-5.6 % Calcium Level 9.3 8.5-10.1 mg/dl Total Bilirubin 1.0 0.2-1 mg/dl Direct Bilirubin 0.2 0-0.2 mg/dl Aspartate Amino Transf (AST/SGOT) 19 15-37 U/L Alanine Aminotransferase (ALT/SGPT) 27 12-78 U/L Alkaline Phosphatase 84 45-117 U/L Total Creatine Kinase 148 39-308 U/L Creatine Kinase MB 1.4 0.5-3.6 ng/ml Creatine Kinase MB Ratio 0.9 0-3.0 Troponin I < 0.015 0-0.045 ng/ml Total Protein 7.6 6.4-8.2 gm/dl Albumin 4.0 3.4-5.0 gm/dl Lipase 130 73-393 U/L Lyme Disease IgM Antibody NEG NEG Bedside Prothrombin Time INR 1.0 0.9-1.1 Vitamin B12 Level 359 211-911 pg/mL Folate > 24.00 >5.38 ng/mL Test 12/06/16 17:49 12/06/16 18:53 12/06/16 20:51 12/06/16 21:25 Range/Units Bedside Glucose 163 145 70-99 mg/dl Lyme Disease IgG Antibody NEG NEG Lyme Disease IgM Antibody NEG NEG Urine Color YELLOW Urine Appearance CLEAR CLEAR Urine pH 5.5 4.5-7.5 Urine Specific [place] 1.027 1.000-1.030 Urine Protein NEG NEG Urine Glucose (UA) NEG NEG Urine Ketones NEG NEG Urine Occult Blood NEG NEG Urine Nitrite NEG NEG Urine Bilirubin NEG NEG Urine Urobilinogen NEG NEG Urine Leukocyte Esterase NEG NEG Urine Opiates Screen POS NEG Urine Methadone, Qualitative NEG NEG Urine Barbiturates NEG NEG Urine Phencyclidine (PCP) Level NEG NEG Ur Amphetamine/Methamphetamine NEG NEG MDMA (Ecstasy) Screen NEG NEG Urine Benzodiazepines Screen NEG NEG Urine Cocaine Metabolite NEG NEG Urine Marijuana (THC) NEG NEG Test 12/06/16 23:05 12/07/16 06:05 12/07/16 07:35 Range/Units Erythrocyte Sedimentation Rate 2 0-14 mm/hr Total Creatine Kinase 93 39-308 U/L Rheumatoid Factor < 10.0 0-15 U/mL White Blood Count 7.28 4.8-10.8 K/uL Red Blood Count 4.80 4.7-6.1 M/uL Hemoglobin 13.7 14.0-18.0 g/dL Hematocrit 40.7 42-52 % Mean Corpuscular Volume 84.8 80-100 fL Mean Corpuscular Hemoglobin 28.5 25-34 pg Mean Corpuscular Hemoglobin Concent 33.7 32-36 g/dl Platelet Count 164 130-400 K/uL Mean Platelet Volume 11.2 7.4-10.4 fL Neutrophils (%) (Auto) 61.2 % Lymphocytes (%) (Auto) 28.2 % Monocytes (%) (Auto) 7.4 % Eosinophils (%) (Auto) 2.6 % Basophils (%) (Auto) 0.3 % Neutrophils # (Auto) 4.46 1.4-6.5 K/uL Lymphocytes # (Auto) 2.05 1.2-3.4 K/uL Monocytes # (Auto) 0.54 0.11-0.59 K/uL Eosinophils # (Auto) 0.19 0-0.5 K/uL Basophils # (Auto) 0.02 0-0.2 K/uL RDW Standard Deviation 37.9 36.4-46.3 fL RDW Coefficient of Variation 12.2 11.5-14.5 % Immature Granulocyte % (Auto) 0.3 % Immature Granulocyte # (Auto) 0.02 0.00-0.02 K/uL Sodium Level 140 136-145 mmol/L Potassium Level 4.0 3.5-5.1 mmol/L Chloride Level 104 98-107 mmol/L Carbon Dioxide Level 30 21-32 mmol/L Anion Gap 6.0 3-11 mmol/L Blood Urea Nitrogen 14 7-18 mg/dl Creatinine 0.92 0.60-1.40 mg/dl Est Creatinine Clear Calc Drug Dose 89.8 ml/min Estimated GFR () 112.0 Estimated GFR (Non- 96.6 BUN/Creatinine Ratio 15.2 10-20 Random Glucose 140 70-99 mg/dl Calcium Level 8.2 8.5-10.1 mg/dl Triglycerides Level 206 0-150 mg/dl Cholesterol Level 133 0-200 mg/dl HDL Cholesterol 37 mg/dl LDL Cholesterol, Calculated 55 mg/dl VLDL Cholesterol, Calculated 41 mg/dl Cholesterol/HDL Ratio 3.6 Bedside Glucose 99 70-99 mg/dl
[2016-12-07] MEDS ORDERED: MECLIZINE HCL 12.5 MG TAB PO PRN (09:15)
--- NOTE | 2016-12-07 09:24 | Discharge Instructions ---
Discharge Instructions Date of Service Dec 07, 2016. Admission Reason for Admission: Impairment Of Balance, Slurred Speech Discharge Discharge Diagnosis / Problem: FIBROMYALGIA /DIZZY SPELL Discharge Goals Goal(s): Decrease discomfort, Diagnostic testing Activity Recommendations Activity Limitations: resume your previous activity . Instructions / Follow-Up Instructions / Follow-Up HOSPITAL FOLLOW UP WITH DR DASH Cifuentes at [facility] IN A WEEK , PLEASE CALL OFFICE FOR APPOINTMENT NEED TO HAVE REFERRAL TO RHEUMATOLOGY OUT PATIENT FOR POSSIBLE FIBROMYALGIA EVALUATION Current Hospital Diet Patient's current hospital diet: Diabetes Type 2 Diet, AHA Diet (Heart Healthy) , Vegetarian Diet Discharge Diet Recommended Diet: AHA Diet (Heart Healthy), Diabetes Type 2 Diet Pending Studies Studies pending at discharge: no Laboratory Results Hemoglobin A1c Test 12/06/16 11:20 Range/Units Estimated Average Glucose 148 mg/dl Hemoglobin A1c 6.8 H 4.5-5.6 % Lipid Panel Test 12/07/16 06:05 Range/Units Triglycerides Level 206 H 0-150 mg/dl Cholesterol Level 133 0-200 mg/dl HDL Cholesterol 37 mg/dl Cholesterol/HDL Ratio 3.6 LDL Cholesterol, Calculated 55 mg/dl Medical Emergencies . Who to Call and When: Medical Emergencies: If at any time you feel your situation is an emergency, please call 911 immediately. . Non-Emergent Contact Non-Emergency issues call your: Primary Care Provider . . "Provider Documentation" section prepared by Sheila Espinoza. . VTE Core Measure Inpt VTE Proph given/why not?: Enoxaparin (Lovenox)SQ
[2016-12-07] MEDS ORDERED: ANT25 PO (09:26)
[2016-12-07] MEDS ORDERED: ASPEC81 PO (09:26)
[2016-12-07] MEDS ORDERED: BISACODYL 5 MG TABEC PO ONE (09:30)
--- NOTE | 2016-12-07 09:30 | ECHOCARDIOGRAM REPORT ---
*NOTICE TO RECEIVING [employer] This information is strictly Confidential and protected under [place] law. [place] law prohibits you from making any further disclosure of this information unless further disclosure is expressly permitted by the written consent of the person to whom it pertains or is authorized by law. A general authorization for the release of medical or other information is not sufficient for this purpose. Hospital accepts no responsibility if the information is made available to any other person, INCLUDING THE PATIENT. Interpretation Summary * Name: CHINA PEÑA Study Date: 12/07/2016 06:44 AM BP: 117/76 mmHg * Patient Location: [facility]\S\N276\S\1 HR: 57 * : 1965 (M/d/yyyy) Gender: Male Height: 67 in * Age: 50 yrs Ethnicity: CA Weight: 166 lb * Ordering Physician: Yaneli Cabrera * Performed By: Shaneka Orr * * Reason For Study: STROKE LIKE SYMPTOMS * BSA: 1.9 m2 * The study was technically adequate. * There is no comparison study available. * -- Conclusions -- * Left ventricular systolic function is normal. * Ejection Fraction = 60-65%. * No significant valvular pathology. * The interatrial septum is intact with no evidence for an atrial septal defect. * Pulse wave TDI of the anterior and posterior mitral annulas demonstrates normal LV relaxation Procedure Details * A complete two-dimensional transthoracic echocardiogram was performed (2D, M-mode, Doppler and color flow Doppler). * A saline contrast injection was performed to assess for cardiac shunting. * The injection was performed through an intravenous line in the right arm. * The attending nurse who injected the saline contrast was URI HUFF RN. * A total of 20 cc of agitated saline was given. Left Ventricle * The left ventricle is normal in size. * There is no thrombus. * There is normal left ventricular wall thickness. * Ejection Fraction = 60-65%. * Left ventricular systolic function is normal. * The left ventricular wall motion is normal. Right Ventricle * The right ventricle is normal size. * The right ventricular systolic function is normal as assessed by tricuspid annular plane systolic excursion (TAPSE) (normal >1.5 cm). Atria * The left atrial size is normal. * Right atrial size is normal. * Injection of contrast documented no interatrial shunt. * The interatrial septum is intact with no evidence for an atrial septal defect. Mitral Valve * The mitral valve is normal. * There is no mitral valve stenosis. * Significant mitral regurgitation is absent. Tricuspid Valve * The tricuspid valve is normal. * There is no tricuspid stenosis. * Significant tricuspid regurgitation is absent. Aortic Valve * The aortic valve is trileaflet. * Aortic stenosis is absent. * There is no significant aortic regurgitation. Pulmonic Valve * The pulmonary valve is not well seen, but the Doppler examination is normal without significant regurgitation or stenosis. Great Vessels * The aortic root and proximal ascending aorta are normal sized. Pericardium/Pleural * There is no pericardial effusion. Great Vessels * Normal inferior vena cava diameter and respiratory variation suggests normal central venous pressure. Left Ventricular Diastolic Function * Pulse wave TDI of the anterior and posterior mitral annulas demonstrates normal LV relaxation MMode 2D Measurements and Calculations IVSd 1.0 cm IVSs 1.9 cm LVIDd 4.3 cm LVIDs 2.6 cm LVPWd 1.1 cm LVPWs 1.6 cm IVS/LVPW 0.95 FS 40.2 % EDV(Teich) 82.3 ml ESV(Teich) 23.7 ml EF(Teich) 71.2 % EDV(cubed) 78.6 ml ESV(cubed) 16.8 ml EF(cubed) 78.7 % % IVS thick 87.7 % % LVPW thick 45.0 % LV mass(C)d 154.2 grams LV mass(C)dI 82.6 grams/m\S\2 LV mass(C)s 174.1 grams LV mass(C)sI 93.2 grams/m\S\2 SV(Teich) 58.6 ml SI(Teich) 31.4 ml/m\S\2 SV(cubed) 61.8 ml SI(cubed) 33.1 ml/m\S\2 ACS 1.8 cm LA dimension 3.4 cm asc Aorta Diam 2.8 cm LVOT diam 2.0 cm LVOT area 3.2 cm\S\2 LVAd ap4 27.9 cm\S\2 LVLd ap4 7.6 cm EDV(MOD-sp4) 83.2 ml EDV(sp4-el) 87.5 ml LVAs ap4 14.1 cm\S\2 LVLs ap4 6.1 cm ESV(MOD-sp4) 25.9 ml ESV(sp4-el) 27.6 ml EF(MOD-sp4) 68.8 % EF(sp4-el) 68.4 % LVAd ap2 30.0 cm\S\2 LVLd ap2 7.3 cm EDV(MOD-sp2) 99.5 ml EDV(sp2-el) 104.1 ml LVAs ap2 15.2 cm\S\2 LVLs ap2 6.3 cm ESV(MOD-sp2) 30.6 ml ESV(sp2-el) 31.5 ml EF(MOD-sp2) 69.3 % EF(sp2-el) 69.8 % LVLd %diff -3.28 % EDV(MOD-bp) 92.1 ml LVLs %diff 2.2 % ESV(MOD-bp) 28.5 ml EF(MOD-bp) 69.0 % SV(MOD-sp4) 57.3 ml SI(MOD-sp4) 30.7 ml/m\S\2 SV(MOD-sp2) 69.0 ml SI(MOD-sp2) 36.9 ml/m\S\2 SV(MOD-bp) 63.6 ml SI(MOD-bp) 34.0 ml/m\S\2 SV(sp4-el) 59.9 ml SI(sp4-el) 32.0 ml/m\S\2 SV(sp2-el) 72.6 ml SI(sp2-el) 38.9 ml/m\S\2 Doppler Measurements and Calculations MV E max demetrius 82.5 cm/sec MV A max demetrius 62.0 cm/sec MV E/A 1.3 MV dec time 0.20 sec Ao V2 max 97.1 cm/sec Ao max PG 3.8 mmHg Ao max PG (full) 1.1 mmHg HOSSEIN(V,A) 2.7 cm\S\2 HOSSEIN(V,D) 2.7 cm\S\2 LV V1 max PG 2.7 mmHg LV V1 max 82.0 cm/sec PA V2 max 62.6 cm/sec PA max PG 1.6 mmHg PI end-d demetrius 56.5 cm/sec
[2016-12-07] MEDS: POLYETHYLENE (MIRALAX) 17 GM PACK PO SCH (10:30)
--- NOTE | 2016-12-07 16:02 | Neurology Progress Notes ---
Neurology Progress Note Date of Service Dec 07, 2016. Uma Dutta is a 50 year old male with PMH - DM type 2, hyperlipidemia, fibromyalgia , He complains of balance issues over the past 2-3 months has gradually progressive balance difficulty with frequent falls, coordination problems, word finding difficulty dizziness, lethargy, weakness of the bilateral arms and legs , worsening of chronic bilateral UE/LE numbness. He is no longer driving due to the motion of the car causing dizziness. He has had episodes of double vision and blurred vision, vertigo with positional changes and motion, tinnitus ( approximately 4 years), lightheadedness/ pre-syncopal episodes, increasingly frequent frontal headaches. Two weeks ago he injured his right shoulder catching himself from a fall and has right shoulder pain and weakness since that time. He dropped a heavy object on top of his head and has c-spine pain since that time. He was not evaluated for the injury. He was seen at [facility] yesterday for labs and was told to come to the ER. He has episodes of apnea and then day time drowsiness and lethargy. His appetite is not good and he gets easily constipated although he is eating his lunch without difficulty. Had hypoglycemia a few days ago which was symptomatic. He states he understands he does not have a chiari malformation but he is still worried about the balance issues. His LE strength is better today than yesterday. He denies fever, syncope, hearing loss, cough, SOB, N/V, urinary changes, rash or tick bite. no family history of neurologic disease, stroke. he states he has all the symptoms of a chiari malformation. Objective Date Time Temp Pulse Resp B/P (MAP) Pulse Ox O2 Delivery O2 Flow Rate FiO2 12/07/16 13:48 36.8 60 16 96 Room Air 12/07/16 11:02 36.8 60 16 127/78 (94) 96 12/07/16 08:00 97 Room Air 12/07/16 07:16 36.8 58 14 125/78 (94) 97 12/07/16 04:59 36.5 57 20 117/76 (90) 97 Room Air 12/07/16 04:05 Room Air 12/07/16 00:05 Room Air 12/06/16 23:03 36.7 74 18 112/71 (85) 95 Room Air 12/06/16 20:00 96 Room Air 12/06/16 19:27 36.4 82 16 120/73 (89) 96 Room Air 12/06/16 16:00 99 Room Air Last 24 Hours Test 12/06/16 17:49 12/06/16 18:53 12/06/16 20:51 12/06/16 21:25 Bedside Glucose 163 mg/dl 145 mg/dl Lyme Disease IgG Antibody NEG Lyme Disease IgM Antibody NEG Urine Color YELLOW Urine Appearance CLEAR Urine pH 5.5 Urine Specific [place] 1.027 Urine Protein NEG Urine Glucose (UA) NEG Urine Ketones NEG Urine Occult Blood NEG Urine Nitrite NEG Urine Bilirubin NEG Urine Urobilinogen NEG Urine Leukocyte Esterase NEG Urine Opiates Screen POS Urine Methadone, Qualitative NEG Urine Barbiturates NEG Urine Phencyclidine (PCP) Level NEG Ur Amphetamine/Methamphetamine NEG MDMA (Ecstasy) Screen NEG Urine Benzodiazepines Screen NEG Urine Cocaine Metabolite NEG Urine Marijuana (THC) NEG Test 12/06/16 23:05 12/07/16 06:05 12/07/16 07:35 12/07/16 11:35 Erythrocyte Sedimentation Rate 2 mm/hr Total Creatine Kinase 93 U/L Rheumatoid Factor < 10.0 U/mL White Blood Count 7.28 K/uL Red Blood Count 4.80 M/uL Hemoglobin 13.7 g/dL Hematocrit 40.7 % Mean Corpuscular Volume 84.8 fL Mean Corpuscular Hemoglobin 28.5 pg Mean Corpuscular Hemoglobin Concent 33.7 g/dl Platelet Count 164 K/uL Mean Platelet Volume 11.2 fL Neutrophils (%) (Auto) 61.2 % Lymphocytes (%) (Auto) 28.2 % Monocytes (%) (Auto) 7.4 % Eosinophils (%) (Auto) 2.6 % Basophils (%) (Auto) 0.3 % Neutrophils # (Auto) 4.46 K/uL Lymphocytes # (Auto) 2.05 K/uL Monocytes # (Auto) 0.54 K/uL Eosinophils # (Auto) 0.19 K/uL Basophils # (Auto) 0.02 K/uL RDW Standard Deviation 37.9 fL RDW Coefficient of Variation 12.2 % Immature Granulocyte % (Auto) 0.3 % Immature Granulocyte # (Auto) 0.02 K/uL Sodium Level 140 mmol/L Potassium Level 4.0 mmol/L Chloride Level 104 mmol/L Carbon Dioxide Level 30 mmol/L Anion Gap 6.0 mmol/L Blood Urea Nitrogen 14 mg/dl Creatinine 0.92 mg/dl Est Creatinine Clear Calc Drug Dose 89.8 ml/min Estimated GFR () 112.0 Estimated GFR (Non- 96.6 BUN/Creatinine Ratio 15.2 Random Glucose 140 mg/dl Calcium Level 8.2 mg/dl Triglycerides Level 206 mg/dl Cholesterol Level 133 mg/dl HDL Cholesterol 37 mg/dl LDL Cholesterol, Calculated 55 mg/dl VLDL Cholesterol, Calculated 41 mg/dl Cholesterol/HDL Ratio 3.6 Bedside Glucose 99 mg/dl 95 mg/dl Imaging: MRI with and without contrast brain FINDINGS: No evidence for an acute ischemic event. Minimal chronic small vessel change of periventricular deep white matter regions. Ventricular system is midline. Internal auditory canals are symmetric. MRA brain -No significant stenosis, occlusion, or aneurysm within the [place]. MRA neck- No significant stenosis, occlusion, or dissection identified within the carotid or vertebral arteries. Exam: Physical Exam: Constitutional: appearance nourished, healthy and normal Ears, Nose, Mouth and Throat: mucous membranes moist, no injection and skin normal, eyes normal Cardiovascular: normal S-1 and S-2 and regular rate and rhythm Respiratory: clear to auscultation (CTA) and no rales, rhonchi or wheeze Musculoskeletal: no peripheral edema and good distal pulses Skin: no stigmata of neurocutaneous disease noted and normal and intact Eyes: extraocular muscles intact (EOMI) and pupils equal, round and reactive to light (PERRL) NEUROLOGIC EXAMINATION: Mental status: Alert and interactive Oriented to full date and location Oriented to person Speech fluent with no evidence of aphasia Cranial Nerves face symmetric Coordination: Romberg absent Gait/Stance: Posture normal. Gait normal: with steady with steps, base, turning tandem gait. Motor: Negative for pronator drift of out stretched arms with eyes closed. Strength: biceps triceps hand strapper 5/5, hip flex plantar flex ext 5/5 bilaterally Current Inpatient Medications Medications (Trade) Dose Ordered Sig/Michelle Route Start Time Stop Time Status Last Admin Dose Admin Atorvastatin Calcium (Lipitor Tab) 40 mg HS PO 12/06/16 21:00 01/05/17 20:59 12/06/16 21:15 40 MG Aspirin (Ecotrin Tab) 81 mg QAM PO 12/07/16 09:00 7/15/17 08:59 12/07/16 08:54 81 MG Fish Oil ([place]-3 (Purified Fish Oil) Cap) 1 gm DAILY PO 12/07/16 09:00 01/06/17 08:59 12/07/16 08:54 1 GM Multivitamins (Multivitamin Tab) 1 tab DAILY PO 12/07/16 09:00 01/06/17 08:59 12/07/16 08:54 1 TAB Insulin Aspart (novoLOG ASPART) SLIDING SCALE If C... ACHS SC 12/06/16 16:30 01/05/17 16:29 12/07/16 08:52 2 UNITS Glucose (Glucose 40% Gel) 15-30 GRAMS 15 GRAMS... UD PRN PO 12/06/16 14:00 01/05/17 13:59 Glucose (Glucose Chew Tab) 4-8 Tablets 4 Tabl... UD PRN PO 12/06/16 14:00 01/05/17 13:59 Dextrose (Dextrose 50% 50ML Syringe) 25-50ML OF 50% DW IV FOR... UD PRN IV 12/06/16 14:00 01/05/17 13:59 Glucagon (Glucagon Inj) 1 mg UD PRN SQ 12/06/16 14:00 01/05/17 13:59 Acetaminophen (Tylenol Tab) 650 mg Q4H PRN PO 12/06/16 14:15 01/05/17 14:14 Ondansetron HCl (Zofran Inj) 4 mg Q6H PRN IV 12/06/16 14:15 01/05/17 14:14 Meclizine HCl (Antivert Tab) 12.5 mg Q8 PRN PO 12/07/16 09:15 01/06/17 09:14 12/07/16 10:31 12.5 MG Polyethylene (Miralax Powder Packet) 17 gm DAILY PO 12/07/16 09:30 01/06/17 09:29 12/07/16 10:30 17 GM Impression 50 year old male with multiple neurologic complains -imaging and labs pending Plan 1. MRI with and without contrast- no acute abnormalities 2. MRA head and neck- no vascular disease 3. c spine MRI - for any compression causing weakness, numbness, tingling 4. acetylcholine receptor AB-pending Lyme titer-negative, sed rate 2, protein electrophoresis pending, vit B-pending, CLARICE-pending 5. out patient work up with rheumatology for fibromyalgia 6. DM control to avoid any further small fiber disease 7. out patient ophthalmology for any structure issues or vascular issues from DM query blurred?double vision? 8. PT for gait issues and repeat Adelia maneuver 9. need to establish with PCP if staying in the area I have seen and discussed above patient with Dr Jose Ramon Harvey, neurology Thus far workup is unrevealing of anything that would suggest a neurologic basis for most of the patients complaints other than perhaps a small fiber polyneuropathy We need to complete the cervical mri with and without contrasst to exclude the remote possibility of a cervical myelitis or compressive myelopathy but exam is not revealing of any signs and we are going on basis of self reported symptoms only Discussed with Dr Espinoza and Isela Glover and will try to get mri done tonight and follow up with rheumatology pt and neuro for the future will be arranged post discharge He will need potentially an emg/ncs and repetetive stimulation to address the peripheral neuropathy and potential neuromuscular junctional defecdt question but this will be an outpateint procedure Arrange neuro follow up about four weeks post discharge with Isela Keane and myself Jose Ramon Harvey MD
--- NOTE | 2016-12-07 16:09 | Discharge Summary ---
Discharge Summary Date of Service Dec 07, 2016. Discharge Summary Admission Date: Dec 06, 2016 at 13:02 Discharge Date: Dec 07, 2016 Discharge Disposition: Home Principal Diagnosis: FIBROMYALGIA /DIZZY SPELL Procedures: ECHO : * Left ventricular systolic function is normal. * Ejection Fraction = 60-65%. * No significant valvular pathology. * The interatrial septum is intact with no evidence for an atrial septal defect. * Pulse wave TDI of the anterior and posterior mitral annulas demonstrates normal LV relaxation MRI OF BRAIN : IMPRESSION: No acute process. Negative study for age. MRA OF BRAIN : IMPRESSION: No significant stenosis, occlusion, or aneurysm within the [place]. MRA OF NECK : IMPRESSION: No significant stenosis, occlusion, or dissection identified within the carotid or vertebral arteries. CERVICAL SPINE XRAY IMPRESSION: Minor degenerative change. No fractures, subluxations, or destructive lesions are visualized. Consultations: NEUROLOGY Medication Reconciliation New Medications: Aspirin (Aspirin EC Low Dose) 81 Mg Ectab 81 MG PO QAM for 30 Days, #30 TABS OVER THE COUNTER Meclizine HCl (Meclizine HCl) 25 Mg Tab 12.5 MG PO Q8 PRN for dizzy spell , #60 TAB Continued Medications: Acetaminophen Tab (Tylenol) 325 Mg Tab 650 MG PO Q4 PRN for Pain, TAB Atorvastatin (Lipitor) 10 Mg Tab 10 MG PO DAILY, TAB Diphenhydramine Hcl (Benadryl Allergy) 25 Mg Cap 1 CAP PO HS PRN for Sleep for 30 Days, #30 CAP 1 Refill Fish Oil ([place]-3) 1 Ea Cap 1 CAP PO DAILY, CAP Glyburide (Diabeta) 2.5 Mg Tab 2.5 MG PO DAILY, TAB Multivitamin (Multivitamin) Tab 1 TAB PO DAILY, TAB Referrals At Discharge Follow up Referrals: Neurologist Referral - Please Call For Appointment with Isela Keane M.D. Business And Services Instructor Referral - Please Call For Appointment with Karin Davis MD Admission Information HPI (per Admitting provider): This is a 50 year old male with PMH of DM type 2, hyperlipidemia, fibromyalgia, and other problems listed below who presents to the ED for neurological symptoms. Patient states over past few months has gradually progressive balance difficulty with frequent falls, coordination problems, word finding difficulty dizziness, lethargy, weakness of the bilateral arms and legs, worsening of chronic bilateral LE numbness. He reports he is no longer able to drive. He also admits to few months of worsening diplopia, vertigo with positional change , tinnitus, lightheadedness/ pre-syncopal episodes, increasingly frequent frontal headaches. He reports frequent falls. Two weeks ago he injured his right shoulder catching himself from a fall and has right shoulder pain and weakness since that time. He reports hitting his head multiple times. He dropped a heavy object on top of his head and has c-spine pain since that time. He did not have evaluation/ imaging for his symptoms. He was seen at [facility] yesterday for labs and was told to come to the ER. Has occasional palpitations. He reports awakening from apnea episodes overnight and daytime somnolence. Has not been tested for sleep apnea. Has noted occasional throbbing pains in right lateral chest which come at random. Appetite is low. Has constipation with mild low abdominal cramping. Last BM 2d ago. Had hypoglycemia a few days ago which was symptomatic. He skips glyburide if BSG is low. He denies fever, syncope, hearing loss, cough, SOB, N/V, urinary changes, rash or tick bite. No known hx of arrhythmia. Physical Exam (per Admitting): General Appearance: WD/WN, no apparent distress, + pertinent finding (alert 50 year old male, sister at bedside) Head: normocephalic, atraumatic Eyes: normal inspection, PERRL, EOMI, sclerae normal ENT: hearing grossly normal, pharynx normal Neck: supple, no carotid bruits, trachea midline, + pertinent finding ( diffuse mild tenderness cervical paraspinal muscles. no pain in c-spine rotation. ) Respiratory/Chest: lungs clear, normal breath sounds, no respiratory distress, no accessory muscle use Cardiovascular: regular rate, rhythm, no murmur Abdomen/GI: normal bowel sounds, soft, + pertinent finding (minimally tender in LLQ) Back: normal inspection, + pertinent finding (no thoracic or lumbar spinal or paraspinal tendernes) Extremities/Musculoskelatal: no calf tenderness, no pedal edema, + pertinent finding (right anterior shoulder tender to palpation. + mild pain with R shoulder ROM. ) Neurologic/Psych: elevator adjuster II-XII nml as tested, no motor/sensory deficits, alert , normal mood/affect, oriented x 3, + pertinent finding (mildly abnormal finger to nose testing) Skin: normal color, warm/dry Hospital Course PROGRESSIVE NEUROLOGICAL SYMPTOMS no evidence of CVA, no neurological deficit noted speech is fluent , has been ambulating independently CT head- no acute findings, + minimal white matter hyperdensities likely on a small vessel basis, + L basal ganglia hypodensity ?lacunar infarct or prominent CSF space MRI brain with and without contrast, MRA brain, MRA neck-normal study Consult neurology- Isela Keane aware, appreciate input possible fibromyalgia no further neurological work up needed recommend out pt follow up with Rheumatology C-SPINE PAIN x-ray of c-spine-no acute change IMPRESSION: Minor degenerative change. No fractures, subluxations, or destructive lesions are visualized. RIGHT SHOULDER PAIN x-ray right shoulder-no acute change 1. No acute fracture. 2. Moderate right acromioclavicular joint osteoarthritis and mild glenohumeral osteoarthritis. DM TYPE 2 Hold glyburide during hospitalization-will be resumed on discharge NovoLog sliding scale coverage DYSLIPIDEMIA cont statin fasting lipid panel; LDL 55 ( with in goal < 100 ) CONSTIPATION Tried Metamucil at home Declines bowel regimen for now- wants to try high fiber food FULL CODE DVT PROPHYLAXIS Lovenox SQ DISPOSITION Living with sister Currently seeing DASH Cifuentes at [facility] medically stable to be discharge home today Total time spent on discharge = 35MINS This includes examination of the patient, discharge planning, medication reconciliation, and communication with other providers. Discharge Instructions Discharge Instructions Date of Service Dec 07, 2016. Admission Reason for Admission: Impairment Of Balance, Slurred Speech Discharge Discharge Diagnosis / Problem: FIBROMYALGIA /DIZZY SPELL Discharge Goals Goal(s): Decrease discomfort, Diagnostic testing Activity Recommendations Activity Limitations: resume your previous activity . Instructions / Follow-Up Instructions / Follow-Up HOSPITAL FOLLOW UP WITH DR DASH Cifuentes at [facility] IN A WEEK , PLEASE CALL OFFICE FOR APPOINTMENT NEED TO HAVE REFERRAL TO RHEUMATOLOGY OUT PATIENT FOR POSSIBLE FIBROMYALGIA EVALUATION Current Hospital Diet Patient's current hospital diet: Diabetes Type 2 Diet, AHA Diet (Heart Healthy) , Vegetarian Diet Discharge Diet Recommended Diet: AHA Diet (Heart Healthy), Diabetes Type 2 Diet Pending Studies Studies pending at discharge: no Laboratory Results Hemoglobin A1c Test 12/06/16 11:20 Range/Units Estimated Average Glucose 148 mg/dl Hemoglobin A1c 6.8 H 4.5-5.6 % Lipid Panel Test 12/07/16 06:05 Range/Units Triglycerides Level 206 H 0-150 mg/dl Cholesterol Level 133 0-200 mg/dl HDL Cholesterol 37 mg/dl Cholesterol/HDL Ratio 3.6 LDL Cholesterol, Calculated 55 mg/dl Medical Emergencies . Who to Call and When: Medical Emergencies: If at any time you feel your situation is an emergency, please call 911 immediately. . Non-Emergent Contact Non-Emergency issues call your: Primary Care Provider . . "Provider Documentation" section prepared by Sheila Espinoza. . VTE Core Measure Inpt VTE Proph given/why not?: Enoxaparin (Lovenox)SQ Additional Copies To Isela Keane PA-C
[2016-12-07] MEDS ORDERED: NURSING VERBAL MED ORDER STA (16:22)
[2016-12-07] MEDS ORDERED: LORAZEPAM 0.5 MG TAB PO ONE (17:00)
[2016-12-07] MEDS ORDERED: GADAVIST IV PRN (19:00)
--- NOTE | 2016-12-07 19:10 | DIAGNOSTIC IMAGING REPORT ---
MRI OF THE CERVICAL SPINE WITH AND WITHOUT CONTRAST CLINICAL HISTORY: Numbness in legs and left arm. Possible cervical myelopathy. COMPARISON: MRI of the cervical spine September 30, 2013 and cervical spine radiograph December 06, 2016. TECHNIQUE: Utilizing a 1.5 Breonna magnet and dedicated coil, multiplanar, multiecho imaging of the cervical spine was performed before and after intravenous administration of 7.5 of Gadavist. FINDINGS: Alignment of the cervical spine is anatomic. Vertebral body heights are maintained. Cervical cord signal and caliber are normal. There is no intracanalicular mass or fluid collection. Paravertebral soft tissues are unremarkable. Visualized portions of the posterior fossa are unremarkable. C2-C3: The central canal and neural foramen are patent. C3-C4: There is minimal disc bulge with a tiny central disc protrusion. This results in mild narrowing of the central canal. This is similar to exam of September 30, 2013. The neural foramen are patent. C4-C5: There is minimal disc bulge. The central canal and neural foramen are patent. C5-C6: There is mild disc bulge with a tiny central disc protrusion. There is mild narrowing of the central canal which is similar to prior MRI. The neural foramen are patent. C6-C7: There is minimal disc bulge. Central canal and neural foramen are patent. C7-T1: Central canal and neural foramen are patent. IMPRESSION: 1. Normal cervical cord signal and caliber. 2. No intracanalicular mass or fluid collection. 3. No significant change in mild multilevel degenerative disc disease of the cervical spine since MRI of September 30, 2013. Mild disc bulges with tiny protrusions at C3-C4 and C5-C6 that result in mild narrowing of the canal. Electronically signed by: Leeroy Venegas M.D. 12/07/2016 7:08 PM Dictated Date/Time: 12/07/2016 7:03 PM
[2016-12-07] MEDS ORDERED: KETOROLAC TROMETHAMINE 30 MG/ML VIAL IV PRN (19:30)
[2016-12-07] MEDS ORDERED: IBUPROFEN 200 MG TAB PO PRN (19:30)
[2016-12-07] MEDS ORDERED: DEXTROSE 50% 50 ML SYR IV PRN (19:45)
[2016-12-07] MEDS ORDERED: GLUCAGON FOR INJ 1 MG VIAL SQ PRN (19:45)
[2016-12-07] MEDS ORDERED: GLUCOSE 40% GEL 15 GM TUBE PO PRN (19:45)
[2016-12-07] MEDS ORDERED: GLUCOSE 10 TABS/TUBE PO PRN (19:45)
[2016-12-07] MEDS: ATORVASTATIN 40 MG TAB PO SCH (21:14)
[2016-12-08] MEDS: INSULIN ASPART 100 UNITS/ML 3 ML PEN SC SCH ×2 (06:30→11:00)
[2016-12-08 06:52] VITALS: BP 125/77; PULSE 64; TEMP 36.6; O2SAT 97
[2016-12-08] MEDS: ASPIRIN 81 MG ECTAB PO SCH (07:45)
[2016-12-08] MEDS: OMEGA-3 (PURIFIED FISH OIL) 1 GM CAP PO SCH (07:45)
[2016-12-08] MEDS: POLYETHYLENE (MIRALAX) 17 GM PACK PO SCH (07:46)
[2016-12-08] MEDS: MULTIVITAMIN TAB PO SCH (07:46)
[2016-12-08 07:47] LABS: BASO % 0.3 %; BASO ABS # 0.02 K/uL (0-0.2); COMPLETE YES; EOS % 2.5 %; HEMATOCRIT 45.9 % (42-52); IG% 0.5 %; LYMPH % 27.1 %; LYMPH ABS # 2.14 K/uL (1.2-3.4); MEAN CELL VOLUME 83.8 fL (80-100); MEAN CORPUSCULAR HEMOGLOBIN 27.9 pg (25-34); MEAN CORPUSCULAR HGB CONC 33.3 g/dl (32-36); NEUT % 61.6 %; PLATELET COUNT 190 K/uL (130-400); RED BLOOD COUNT 5.48 M/uL (4.7-6.1); WHITE BLOOD COUNT 7.91 K/uL (4.8-10.8)
[2016-12-08 08:17] LABS: BUN/CREATININE RATIO 15.8 (10-20); CREATININE 0.98 mg/dl (0.60-1.40); POTASSIUM 4.2 mmol/L (3.5-5.1)
[2016-12-08 08:50] LABS: CALCIUM 8.2 mg/dl (8.5-10.1)
--- NOTE | 2016-12-08 17:17 | Progress Note ---
Internal Med Progress Note Date of Service: Dec 08, 2016. Provider Documentation: SUBJECTIVE: had severe pain on rt arm while in MRI for cervical spine discharge home was cancelled symptom improved anxious about MRI report pt update that Cervical spine MRI has been essentially normal study except for minor arthritis stable to be discharged home today OBJECTIVE: Vital Signs-as noted below Exam: General-no sign of distress Eyes-sclera non icteric ENT-NAD Neck-no JVD Lungs-CTA Heart-regular S1/S2 Abdomen-soft, non tender Extremities-no lower ext edema Neuro-no focal neurological deficit Lab data as noted below. ASSESSMENT & PLAN: PROGRESSIVE NEUROLOGICAL SYMPTOMS symptom has resolved no evidence of CVA-in detail multiple neurological images no neurological deficit noted speech is fluent , has been ambulating independently CT head- no acute findings, + minimal white matter hyperdensities likely on a small vessel basis, + L basal ganglia hypodensity ?lacunar infarct or prominent CSF space MRI brain with and without contrast, MRA brain, MRA neck-normal study MRI of cervical spine : IMPRESSION: 1. Normal cervical cord signal and caliber. 2. No intracanalicular mass or fluid collection. 3. No significant change in mild multilevel degenerative disc disease of the cervical spine since MRI of September 30, 2013. Mild disc bulges with tiny protrusions at C3-C4 and C5-C6 that result in mild narrowing of the canal. Consult neurology- Isela Keane aware, appreciate input possible fibromyalgia no further neurological work up needed recommend out pt follow up with Rheumatology pt updated regarding all the studies provided reassurance stable to be discharged home today C-SPINE PAIN x-ray of c-spine-no acute change IMPRESSION: Minor degenerative change. No fractures, subluxations, or destructive lesions are visualized. MRI of cervical spine as above RIGHT SHOULDER PAIN x-ray right shoulder-no acute change 1. No acute fracture. 2. Moderate right acromioclavicular joint osteoarthritis and mild glenohumeral osteoarthritis. pt was referring to muscle pain on mid rt upper arm will benefit form out pt Physical therapy Script for PT given to pt DM TYPE 2 Hold glyburide during hospitalization-will be resumed on discharge NovoLog sliding scale coverage DYSLIPIDEMIA cont statin fasting lipid panel; LDL 55 ( with in goal < 100 ) CONSTIPATION had bowel movement Tried Metamucil at home Declines bowel regimen for now- wants to try high fiber food FULL CODE DVT PROPHYLAXIS Lovenox SQ DISPOSITION Living with sister Currently seeing PA-C Chapo Lazorka at [facility] medically stable to be discharge home today Vital Signs: Date Time Temp Pulse Resp B/P (MAP) Pulse Ox O2 Delivery O2 Flow Rate FiO2 12/08/16 08:00 Room Air 12/08/16 06:52 36.6 64 18 125/77 (93) 97 Room Air 12/08/16 00:00 Room Air 12/07/16 23:39 36.7 76 18 137/81 (99) 98 Room Air Lab Results: Results Past 24 Hours Test 12/07/16 20:04 12/08/16 07:14 12/08/16 07:26 12/08/16 11:53 Range/Units Bedside Glucose 149 115 165 70-99 mg/dl White Blood Count 7.91 4.8-10.8 K/uL Red Blood Count 5.48 4.7-6.1 M/uL Hemoglobin 15.3 14.0-18.0 g/dL Hematocrit 45.9 42-52 % Mean Corpuscular Volume 83.8 80-100 fL Mean Corpuscular Hemoglobin 27.9 25-34 pg Mean Corpuscular Hemoglobin Concent 33.3 32-36 g/dl Platelet Count 190 130-400 K/uL Mean Platelet Volume 11.0 7.4-10.4 fL Neutrophils (%) (Auto) 61.6 % Lymphocytes (%) (Auto) 27.1 % Monocytes (%) (Auto) 8.0 % Eosinophils (%) (Auto) 2.5 % Basophils (%) (Auto) 0.3 % Neutrophils # (Auto) 4.88 1.4-6.5 K/uL Lymphocytes # (Auto) 2.14 1.2-3.4 K/uL Monocytes # (Auto) 0.63 0.11-0.59 K/uL Eosinophils # (Auto) 0.20 0-0.5 K/uL Basophils # (Auto) 0.02 0-0.2 K/uL RDW Standard Deviation 36.5 36.4-46.3 fL RDW Coefficient of Variation 12.0 11.5-14.5 % Immature Granulocyte % (Auto) 0.5 % Immature Granulocyte # (Auto) 0.04 0.00-0.02 K/uL Sodium Level 141 136-145 mmol/L Potassium Level 4.2 3.5-5.1 mmol/L Chloride Level 106 98-107 mmol/L Carbon Dioxide Level 28 21-32 mmol/L Anion Gap 7.0 3-11 mmol/L Blood Urea Nitrogen 16 7-18 mg/dl Creatinine 0.98 0.60-1.40 mg/dl Est Creatinine Clear Calc Drug Dose 84.3 ml/min Estimated GFR () 103.8 Estimated GFR (Non- 89.5 BUN/Creatinine Ratio 15.8 10-20 Random Glucose 126 70-99 mg/dl Calcium Level 8.2 8.5-10.1 mg/dl
[2016-12-10 12:37] LABS: ALBUMIN 3.5 G/DL (3.8-4.8); GAMMA GLOBULIN 0.7 G/DL (0.8-1.7); TOTAL PROTEIN 5.6 G/DL (6.2-8.3); VITAMIN B6** TC 926 30.4 ng/mL (2.1-21.7)
[2016-12-10 15:24] LABS: COD UR NEGATIVE NG/ML (CUTOFF=50); HYDROCOD UR NEGATIVE NG/ML (CUTOFF=50); HYDROMOR UR NEGATIVE NG/ML (CUTOFF=50); MORPHINE UR 1030 NG/ML (CUTOFF=50); NORHYDROCODONE CONF UR NEGATIVE NG/ML (CUTOFF=50); OXYMORPH UR NEGATIVE NG/ML (CUTOFF=50)
[2016-12-12 19:34] LABS: RECEPTOR BINDING AB <0.30 nmol/L (<=0.30)
== END 2016-12-08 14:51 | disposition home or self-care (01) | DRG 556 ==
LOC: C.EDB 10:44 → C.MED 13:02 → ENRESERV 13:46
PROVIDERS: ADMIT Internal Medicine; ATTEND Hospitalist
DX: M79.7 Fibromyalgia (principal); R42 Dizziness and giddiness; R29.6 Repeated falls; M54.2 Cervicalgia; W20.8XXA Other cause of strike by thrown, projected or falling object, initial encounter; M25.511 Pain in right shoulder; W19.XXXA Unspecified fall, initial encounter; M19.011 Primary osteoarthritis, right shoulder; E11.42 Type 2 diabetes mellitus with diabetic polyneuropathy; E78.5 Hyperlipidemia, unspecified; K59.00 Constipation, unspecified; Z79.84 Long term (current) use of oral hypoglycemic drugs; Z79.899 Other long term (current) drug therapy

== ENCOUNTER → 2017-04-10 | Outpatient (CLI) | payer OTHER ==
[~2017-04-10] MED LIST changes: +ACET325T96 PO; +ANT25 PO; +ASPEC81 PO; +ATOR10TA88 PO; -BNT10 PO; -CYAN3INJ IM; +DIPH25CA65 PO; -FENO48TA9 PO; -GLYB-108 PO; +GLYB2.5T7 PO; +MULT-506 PO; +OMEG10007 PO
--- NOTE | 2017-04-10 16:21 | DIAGNOSTIC IMAGING REPORT ---
CHEST 2 VIEWS ROUTINE HISTORY: Preop. COMPARISON: Chest 12/06/2016. FINDINGS: The lungs are clear. Cardiac silhouette is normal in size. No pleural effusions. No pneumothorax. IMPRESSION: No acute process. Electronically signed by: Anatoliy Vanegas M.D. 04/10/2017 4:20 PM Dictated Date/Time: 04/10/2017 4:19 PM
== END | disposition home or self-care (01) ==
LOC: C.RAD 15:59
DX: Z01.818 Encounter for other preprocedural examination (principal); M75.121 Complete rotator cuff tear or rupture of right shoulder, not specified as traumatic

== ENCOUNTER 2020-02-18 15:42 | Observation (INO) ==
[2020-02-18] MEDS ORDERED: SODIUM CHLORIDE 0.9% 1000ML 1,000 ML IV SCH (16:15)
--- NOTE | 2020-02-18 16:18 | Emergency Department Note ---
Impression & Plan Acute appendicitis, Abdominal pain ED Provider Note NAME: CHINA PEÑA JR AGE: 54 SEX: M : 1965 ARRIVES VIA: Walk-In INFORMANT: Patient, ED PROVIDER(S): Eric Bojorquez DO CHIEF COMPLAINT: Abdominal pain HPI: The patient is a 54-year-old male who presented to the emergency department at the request of his primary care physician for an evaluation of possible appendicitis. The patient has had ongoing pain for approximately 5 to 6 weeks. He states that he has had decreased p.o. intake. He is noticed constipation. He is noticed no vomiting or fever. His primary care physician sent him for a CT the abdomen and pelvis today and then he was called and told to come to the emergency department for possible appendicitis. ROS: See above HPI for pertinent positives & negatives. A total of 10 systems reviewed and were otherwise negative. PAST MEDICAL HISTORY: See Below PAST SURGICAL HISTORY: See Below FAMILY HISTORY: See Below SOCIAL HISTORY: See Below HOME MEDICATIONS: See Below ALLERGIES: See Below VITALS: See Below PHYSICAL EXAMINATION: GENERAL: Patient is awake alert in no acute distress patient is resting comfortably and showing no signs of anxiety EYES: The conjunctivae are clear. The pupils are round and reactive. EARS, NOSE, MOUTH AND THROAT: The nose is without any evidence of any deformity. NECK: The neck is nontender and supple. RESPIRATORY: Normal respiratory effort is noted there is no evidence of wheezing rhonchi or rales CARDIOVASCULAR: Regular rate and rhythm noted there no murmurs rubs or gallops normal S1 normal S2. GASTROINTESTINAL: The abdomen is soft and nondistended. There is bilateral lower abdominal tenderness to palpation. There is mild guarding in the right lower quadrant but no guarding is noted anywhere else on exam. MUSCULOSKELETAL/EXTREMITIES: There is no evidence of gross deformity full range of motion is noted in the hips and shoulders. SKIN: There is no obvious evidence of any rash. There are no petechiae, pallor or cyanosis noted. NEUROLOGIC: Patient is awake alert and oriented x3 strength is symmetric patellar reflexes are 2+ bilaterally MEDICAL DECISION MAKING: The patient is a 54-year-old male who is been experiencing abdominal pain over the last few weeks. He was sent to the emergency department after a CAT scan showed possible appendicitis. The patient does have pain in the proper site for appendicitis however he does not have a fever. His white blood cell count is borderline. Because of his findings I discussed this case with the on-call general surgical group. The patient was evaluated in the emergency department by the surgical group. At this time they are choosing to observe the patient as an inpatient for serial abdominal exams. Likely the patient will require an appendectomy if his symptoms continue to worsen or he develops other symptoms such as fever or very high white blood cell count. The patient was agreeable to this plan. Triage Nursing notes reviewed. Prior medical records reviewed Vital Signs: reviewed and remarkable for no significant abnormalities Differential diagnosis: Appendicitis, testicular torsion, infections, diverticulitis, UTI, obstruction, mesenteric ischemia, aortic pathology, inflammatory bowel disease, renal colic, PUD, pancreatitis, biliary pathology, hernia, volvulus, constipation, as well as other pathologies. ER treatment provided: See below Diagnostics interpreted by me: ECG: none Cardiac Monitoring: An order was placed for continuous cardiac monitoring. The monitor shows a rate of with rhythm. Laboratory studies: As stated above and show below. Imaging studies: See below Consultation(s): 1620: I discussed this case Dr. Mckeon who is on-call for general surgery. ED COURSE: Procedures: none PDMP:reviewed and no issues Critical Care: None Past Med/Surg History Medical History Chronic vertigo Diabetes mellitus, type 2 Diabetic polyneuropathy DJD (degenerative joint disease) of knee Dyslipidemia NO LONGER TAKES MEDS Fibromyalgia (07/05/11) Migraine headache Sensorineural hearing loss (SNHL) of both ears Tinnitus of both ears Surgical History H/O colonoscopy H/O eye surgery "as infant and in 2007 x 2" H/O knee surgery LEFT KNEE X 2 AND RIGHT KNEE X 2 Family History Father Diabetes Leukemia Mother Arthritis Grandfather Prostate cancer Social History Smoking Status: Never smoker Second Hand Exposure: No; Hx Alcohol Use: No Hx Substance Use: No Preferred Language: Pashto Communication Ability: Effective Variety Performer Required: No Beliefs That Will Affect Care: None Current Living Situation: Family Current Living Situation Comment: House Other Information That Helps Us Care for You: No Feels Safe at Home: Yes Safety Concerns: Feels Safe At This Time Allergies Allergies Allergy/AdvReac Type Severity Reaction Status Date / Time atorvastatin Allergy Verified 06/11/19 09:59 Home Meds Home Medications Medication Instructions Recorded Confirmed insulin aspart U-100 [Novolog 4 unit SUBCUT AC 02/18/20 02/18/20 Flexpen U-100 Insulin] insulin glargine [Lantus Solostar 10 - 15 unit SUBCUT HS 02/18/20 02/18/20 U-100 Insulin] liraglutide [Victoza 3-Eric] 1.8 mg SUBCUT QAM 02/18/20 02/18/20 Results & Data (ED) Vital Signs Vital Signs - 24 hr 02/18/20 15:51 Temperature 36.9 C Temperature Source Oral Pulse Rate 93 H Pulse Rhythm Regular Pulse Strength Normal Respiratory Rate 18 Blood Pressure 141/91 H Blood Pressure Mean 107 Pulse Oximetry 100 Oxygen Delivery Method Room Air Sepsis Recent Fever Within 48 Hours No Sepsis New/Unexplained Change in Mental Status N/A Sepsis Action Taken by Nursing No Action Required Home Medications Current Medication List: was personally reviewed by me Laboratory Data Attestation: I reviewed the patient's lab results. Result diagrams: 02/18/20 16:10 02/18/20 16:10 Lab Results 02/18/20 02/18/20 02/18/20 Range/Units 16:10 16:10 16:10 WBC 10.22 (4.8-10.8) K/uL RBC 5.52 (4.7-6.1) M/uL Hgb 16.3 (14.0-18.0) g/dL Hct 47.0 (42-52) % MCV 85.1 (80-100) fL MCH 29.5 (25-34) pg MCHC 34.7 (32-36) g/dL RDW Std Deviation 39.7 (36.4-46.3) fL RDW Coeff of Krishan 12.8 (11.5-14.5) % Plt Count 227 (130-400) K/uL MPV 11.4 H (7.4-10.4) fL Immature Gran % (Auto) 0.3 % Neut % (Auto) 68.7 % Lymph % (Auto) 22.4 % [place] % (Auto) 6.4 % Eos % (Auto) 1.7 % Baso % (Auto) 0.5 % Neut # (Auto) 7.03 H (1.4-6.5) K/uL Lymph # (Auto) 2.29 (1.2-3.4) K/uL [place] # (Auto) 0.65 H (0.11-0.59) K/uL Eos # (Auto) 0.17 (0-0.5) K/uL Baso # (Auto) 0.05 (0-0.2) K/uL Immature Gran # (Auto) 0.03 H (0.00-0.02) K/uL ESR 4 (0-14) mm/hr Sodium 134 L (136-145) mmol/L Potassium 3.8 (3.5-5.1) mmol/L Chloride 100 (98-107) mmol/L Carbon Dioxide 29 (21-32) mmol/L Anion Gap 5.0 (3-11) BUN 10 (7-18) mg/dl Creatinine 1.11 (0.6-1.4) mg/dl Est Cr Clr Drug Dosing Not Reportable Est GFR ( Amer) 86.8 Est GFR (Non-Af Amer) 74.9 BUN/Creatinine Ratio 9.2 L (10-20) Glucose 284 H (70-99) mg/dl Calcium 9.5 (8.5-10.1) mg/dl Magnesium (1.8-2.4) mg/dl Total Bilirubin 0.8 (0.2-1) mg/dl AST 16 (15-37) U/L ALT 22 (12-78) U/L Alkaline Phosphatase 106 (45-117) U/L C-Reactive Protein < 0.29 (0-0.29) mg/dl Total Protein 7.6 (6.4-8.2) gm/dl Albumin 3.8 (3.4-5.0) gm/dl Globulin 3.8 (2.5-4.0) gm/dl Albumin/Globulin Ratio 1.0 (0.9-2) Lipase 125 (73-393) U/L // Range/Units 16:10 WBC (4.8-10.8) K/uL RBC (4.7-6.1) M/uL Hgb (14.0-18.0) g/dL Hct (42-52) % MCV (80-100) fL MCH (25-34) pg MCHC (32-36) g/dL RDW Std Deviation (36.4-46.3) fL RDW Coeff of Krishan (11.5-14.5) % Plt Count (130-400) K/uL MPV (7.4-10.4) fL Immature Gran % (Auto) % Neut % (Auto) % Lymph % (Auto) % [place] % (Auto) % Eos % (Auto) % Baso % (Auto) % Neut # (Auto) (1.4-6.5) K/uL Lymph # (Auto) (1.2-3.4) K/uL [place] # (Auto) (0.11-0.59) K/uL Eos # (Auto) (0-0.5) K/uL Baso # (Auto) (0-0.2) K/uL Immature Gran # (Auto) (0.00-0.02) K/uL ESR (0-14) mm/hr Sodium (136-145) mmol/L Potassium (3.5-5.1) mmol/L Chloride (98-107) mmol/L Carbon Dioxide (21-32) mmol/L Anion Gap (3-11) BUN (7-18) mg/dl Creatinine (0.6-1.4) mg/dl Est Cr Clr Drug Dosing Est GFR ( Amer) Est GFR (Non-Af Amer) BUN/Creatinine Ratio (10-20) Glucose (70-99) mg/dl Calcium (8.5-10.1) mg/dl Magnesium 2.0 (1.8-2.4) mg/dl Total Bilirubin (0.2-1) mg/dl AST (15-37) U/L ALT (12-78) U/L Alkaline Phosphatase (45-117) U/L C-Reactive Protein (0-0.29) mg/dl Total Protein (6.4-8.2) gm/dl Albumin (3.4-5.0) gm/dl Globulin (2.5-4.0) gm/dl Albumin/Globulin Ratio (0.9-2) Lipase (73-393) U/L Administered Medications Acetaminophen (Acetaminophen 325 Mg Tab) 650 mg PO Q6H PRN PRN Reason: MILD Pain (Scale 1,2,3) Stop: 03/19/20 18:18 Last Admin: 02/18/20 19:37 Dose: 650 mg Documented by: [id number] Sodium Chloride (Nss 1000ml) 1,000 mls @ 100 mls/hr IV .Q10H YESI Stop: 03/19/20 18:18 Last Admin: 02/18/20 19:27 Dose: 100 mls/hr Documented by: [id number] Insulin Aspart (Insulin Aspart 100 Units/Ml 3 Ml Pen) 0 units SC ACHS YESI Stop: 03/19/20 19:59 Last Admin: 02/18/20 20:17 Dose: 8 units Documented by: [id number] Cosigned by: [id number] Discontinued Medications Sodium Chloride (Nss 1000ml) 1,000 mls @ 999 mls/hr IV .Q1H1M [facility] Stop: 02/18/20 17:15 Last Infusion: 02/18/20 17:47 Dose: 0 mls/hr Documented by: [id number] Admin: 02/18/20 16:36 Dose: 999 mls/hr Documented by: [id number] Piperacillin Sod/Tazobactam (Sod 3.375 gm/ Dextrose) 115 mls @ 28.75 mls/hr IV Q8H [facility]; Protocol Stop: 02/28/20 18:18 Last Admin: 02/18/20 19:50 Dose: Not Given Documented by: [id number] Piperacillin Sod/Tazobactam (Sod 4.5 gm/ Dextrose) 120 mls @ 200 mls/hr IV NOW ONE; Protocol Stop: 02/18/20 20:05 Last Infusion: 02/18/20 20:41 Dose: 0 mls/hr Documented by: [id number] Admin: 02/18/20 19:47 Dose: 200 mls/hr Documented by: [id number] Insulin Glargine (Insulin Glargine Solostar 100 Units/Ml 3 Ml Pen) 10 units SC ONE ONE Stop: 02/18/20 20:01 Last Admin: 02/18/20 20:17 Dose: 10 units Documented by: [id number] Cosigned by: [id number] Miscellaneous (Patient's Height And/Or Weight Needed) 1 ea N/A Q2H [facility] Stop: 03/19/20 20:44 Last Admin: 02/18/20 21:02 Dose: 1 ea Documented by: [id number] Blood Pressure Blood Pressure Findings: Normal blood pressure Discharge Plan Visit Data Chief Complaint: Abdominal Pain Stated Complaint: ABD PAIN, ABNORMAL CT SCAN ED Provider: Eric Bojorquez Discharge Problem: Acute appendicitis, Abdominal pain Patient Disposition: Admitted As Inpatient Condition: Good Discharge Instructions Interventions: ED Discharge Assessment Last Done: 02/18/20 18:04
[2020-02-18 16:23] LABS: Basophils # (auto) 0.05 K/uL (0-0.2); Basophils % (auto) 0.5 %; Eosinophils # (auto) 0.17 K/uL (0-0.5); Eosinophils % (auto) 1.7 %; Hemoglobin 16.3 g/dL (14.0-18.0); Immature Granulocytes # (auto) 0.03 K/uL (0.00-0.02); Immature Granulocytes % (auto) 0.3 %; Lymphocytes # (auto) 2.29 K/uL (1.2-3.4); Lymphocytes % (auto) 22.4 %; Mean Corpuscular Hemoglobin 29.5 pg (25-34); Mean Corpuscular Hgb Conc 34.7 g/dL (32-36); Mean Corpuscular Volume 85.1 fL (80-100); Mean Platelet Volume 11.4 fL (7.4-10.4); Monocytes # (auto) 0.65 K/uL (0.11-0.59); Monocytes % (auto) 6.4 %; Neutrophils # (auto) 7.03 K/uL (1.4-6.5); Neutrophils % (auto) 68.7 %; Platelet Count 227 K/uL (130-400); RDW Coefficient of Variation 12.8 % (11.5-14.5); RDW Standard Deviation 39.7 fL (36.4-46.3); Red Blood Count 5.52 M/uL (4.7-6.1); White Blood Count 10.22 K/uL (4.8-10.8)
[2020-02-18 16:42] LABS: Alanine Aminotransferase 22 U/L (12-78); Albumin Level 3.8 gm/dl (3.4-5.0); Aspartate Aminotransferase 16 U/L (15-37); BUN Creatinine Ratio 9.2 (10-20); Blood Urea Nitrogen 10 mg/dl (7-18); C Reactive Protein < 0.29 mg/dl (0-0.29); Calcium 9.5 mg/dl (8.5-10.1); Carbon Dioxide 29 mmol/L (21-32); Chloride 100 mmol/L (98-107); Est GFR (African American) 86.8; Est GFR (Non-African American) 74.9; Glucose 284 mg/dl (70-99); Lipase 125 U/L (73-393); Potassium 3.8 mmol/L (3.5-5.1); Sodium 134 mmol/L (136-145)
[2020-02-18 16:44] LABS: Alkaline Phosphatase 106 U/L (45-117); Bilirubin,Total 0.8 mg/dl (0.2-1); Globulin 3.8 gm/dl (2.5-4.0); Total Protein 7.6 gm/dl (6.4-8.2)
--- NOTE | 2020-02-18 17:35 | History & Physical Report ---
Date of Service February 18, 2020 Assessment & Plan (1) Abdominal pain: This is a 54y M with a PMH of fibromyalgia, vertigo, and depression who presents to the [facility] ED on 02/18/20 with abdominal complaints. He was called to come in by his PCP after undergoing an outpatient CT scan that read as a mildly dilated and fluid-filled appendix, and the appendiceal wall appears mildly thickened and hyperemic. There is no surrounding inflammatory change. Mild acute appendicitis is not excluded. Patient has been experiencing vague abdominal complaints over the past 4+ weeks including diarrhea, bloating, nausea, abdominal pain that sometimes radiates to his chest & back, and decreased appetite as he feels as though food is not moving through. He states that the abdominal pain has been becoming worse in severity and he states he cannot function well in his day to day life. On examination patient's abdomen is soft, non distended, and has some ttp in the RLQ and epigastric regions. Patient's WBC is 10 and he is afebrile with otherwise stable vital signs. As patient's symptoms have been present >[address] scan is equivocal for appendicitis do not believe there is an urgent indication to take patient to surgery. After discussion with patient he is agreeable to admission to the hospital and we will start him on IVF hydration, IV abx, and make NPO at midnight for any possible procedures. We will see how he feels tomorrow prior to making any decisions regarding surgery. Pt discussed with Dr. Asencio. (2) Abdominal pain: Long discussion with the patient regarding his CT scan findings and possible therapy certainly on a clinical basis he has no rebound tenderness no real localized tenderness but more guarding in the right lower quadrant but I did recommend to him that probably obligated to do an appendectomy she does have a slightly elevated white count and slight hyperemia on a CAT scan Certainly this is nothing urgent that we need to do night I recommended that we get an ultrasound of his gallbladder early in the morning and plan at that time to proceed with a laparoscopic appendectomy and if the gallbladder shows some pathology procedure a cholecystectomy He is agreeable to proceed with our plans Consult of the medical service to help us manage his diabetes History of Present Illness Primary Care Provider: Chapo Cifuentes This is a 54y M with a PMH of fibromyalgia, vertigo, and depression who presents to the [facility] ED on 02/18/20 with abdominal complaints. He was called by his PCP to come be evaluated today in the ED after undergoing an outpatient CT scan that revealed findings concerning for mild acute appendicitis. Upon history taking the patient reports that he has been having abdominal issues over the past 4+ weeks including diarrhea, abdominal pain that sometimes radiates into the chest and back, increased gas and burping, and bloating. He states he has not been eating much because he feels like the food is not moving through. He states he eats a healthy diet and denies any certain foods that are aggravating. Patient reports that the symptoms have been worsening, in particular the abdominal pain. When I ask him to point where his pain is he waves his hand over the right side of his abdomen. He states that the pain can be fairly constant and at times can be sharp, crampy, and/or dull. Patient reports he has been brushing off the pain thinking it was related to his fibromyalgia, but he states he can no longer keep living with these symptoms. 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 Patient denies any prior abdominal surgical history. Of note he underwent a colonoscopy last month that revealed some diverticulosis but was otherwise unremarkable. Surgery was consulted for further evaluation. Allergies Allergy/AdvReac Type Severity Reaction Status Date / Time atorvastatin Allergy Verified 06/11/19 09:59 Home Medications Home Medications Medication Instructions Recorded Confirmed Type insulin aspart U-100 [Novolog 4 unit SUBCUT AC 02/18/20 02/18/20 History Flexpen U-100 Insulin] insulin glargine [Lantus Solostar 10 - 15 unit SUBCUT HS 02/18/20 02/18/20 History U-100 Insulin] liraglutide [Victoza 3-Eric] 1.8 mg SUBCUT QAM 02/18/20 02/18/20 History Past Med/Surg History Medical History Chronic vertigo Diabetes mellitus, type 2 Diabetic polyneuropathy DJD (degenerative joint disease) of knee Dyslipidemia NO LONGER TAKES MEDS Fibromyalgia (07/05/11) Migraine headache Sensorineural hearing loss (SNHL) of both ears Tinnitus of both ears Surgical History H/O colonoscopy H/O eye surgery "as infant and in 2008 x 2" H/O knee surgery LEFT KNEE X 2 AND RIGHT KNEE X 2 Family History Father Diabetes Leukemia Mother Arthritis Grandfather Prostate cancer Social History Smoking Status: Never smoker Second Hand Exposure: No; Hx Alcohol Use: No Hx Substance Use: No Preferred Language: Lao Communication Ability: Effective 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 Beliefs That Will Affect Care: None Current Living Situation: Family Current Living Situation Comment: House Other Information That Helps Us Care for You: No Feels Safe at Home: Yes Safety Concerns: Feels Safe At This Time Review of Systems Constitutional: no fever and no chills Gastrointestinal: + abdominal pain (mostly right sided and upper abdominal), + belching, + bloating, + nausea, + excessive flatulence and + diarrhea/loose stools; no vomiting Physical Exam Physical Exam: awake/alert Respiratory: normal respiratory effort Gastrointestinal (Abdomen): Inspection/Auscultation: abdomen not distended and no abdominal surgical scar Percussion/Palpation: + abdomen tender (ttp RLQ and epigastric region) and abdomen soft Results & Data Results & Data ([facility]) Vital Signs (Past 12 Hours) Vital Signs Temp Pulse Resp BP Pulse Ox 02/18/20 15:51 36.9 C 93 H 18 141/[address] SCAN OF THE ABDOMEN AND PELVIS WITH IV CONTRAST CLINICAL HISTORY: Generalized abdominal pain. COMPARISON STUDY: Abdominal CT dated 07/06/2011. TECHNIQUE: Following the IV administration of 94 cc of Optiray 320, CT scan of the abdomen and pelvis is performed from the lung bases to the proximal femora. Images are reviewed in the axial, sagittal, and coronal planes. IV contrast was administered without complication. Oral contrast was utilized. A dose lowering technique was utilized adhering to the principles of ALARA. CT DOSE: 436.57 mGy.cm FINDINGS: Lung bases: The heart is normal in size and without pericardial effusion. The lung bases are clear noting dependent atelectasis. Liver: The contrast-enhanced liver is normal in size, contour, and attenuation. There is no intrahepatic biliary ductal dilatation. The hepatic veins and portal veins are patent. Gallbladder: Unremarkable. Spleen: Normal in size and attenuation. Pancreas: Unremarkable. Adrenal glands: Unremarkable. Kidneys: The contrast enhanced kidneys are normal in size and without hydronephrosis. The kidneys enhance symmetrically. Abdominal vasculature: The abdominal aorta is normal in course and caliber. Bowel: There is no bowel obstruction. Mild to moderate fecal retention is seen throughout the colon. Enteric contrast reaches the distal small bowel. The appendix is fluid-filled and measures 9 mm in diameter as seen on image #267. The appendiceal wall appears mildly thickened and hyperemic. There is no surrounding inflammatory change. No organized fluid collection is identified. Peritoneum: There is no intraperitoneal free air or abdominal ascites. Lymphadenopathy: None. Pelvic viscera: The bladder, prostate, and seminal vesicles are normal as imaged. Skeletal structures: No lytic or blastic lesions are seen. IMPRESSION: 1. The appendix is mildly dilated and fluid-filled, and the appendiceal wall appears mildly thickened and hyperemic. There is no surrounding inflammatory change. Mild acute appendicitis is not excluded and clinical correlation will be required. 2. Mild to moderate colonic fecal retention. No bowel obstruction is seen. 3. Additional findings as above. ACT 112: Negative or not required by law. Electronically signed by: Nicholas Murillo M.D. 02/18/2020 1:19 PM Code Status & VTE Plan VTE Prophylaxis Plan VTE Prophylaxis will be ordered: Yes Supervising Physician Co-Signing Physician Notes This 54-year-old gentleman history is well described by Dannielle Salguero our physician respiratory therapist assistant Tra has not been feeling well for at least 4 weeks although if you ask him a few minutes later he states is only a couple weeks with abdominal pain generalized as he states he has a history of fibromyalgia he was evaluated by the family doctor today and underwent a CT scan of the abdomen which showed a questionable appendicitis and was referred here for evaluation There is a report in December 2018 that the patient underwent colonoscopy at that time for vague abdominal pain and an abnormal CT scan finding (I do not know where the CT scan was done certainly is not in our records and the patient does not remember when or where it was done) but colonoscopy did not reveal any pathology. The patient is also had bouts of abdominal distention reflux and diarrhea may be regular by certain foods but he also states that his family history is positive for gallstones his father has gallbladder out as was 1 of his sisters The patient denies any changes in weight denies any chills or fever He is laying comfortably in bed wishing to have something to eat Abdominal exam at this time is got generalized guarding and points to the right lower quadrant as more discomfort PG Care Time/CCT Total # of Minutes Spent Total Time Spent with Patient: Total time spent is greater than 50% in coordination of care (as documented) at patient's floor/unit and/or counseling patient: Coding Level of Care Code 65502 OBS Care - Level 1 Diagnoses Abdominal pain R10.9 Abdominal pain R10.9 Time Spent (min) 60
[2020-02-18] MEDS ORDERED: PIPERACILLIN/TAZOBACTAM 3.375 GM in DEXTROSE 5% 100 ML IV SCH (18:19)
[2020-02-18] MEDS ORDERED: OXYCODONE/ACETAMINOPHEN 5mg/325mg TAB PO PRN (18:19)
[2020-02-18] MEDS ORDERED: ACETAMINOPHEN 325 MG TAB PO PRN (18:19)
[2020-02-18] MEDS ORDERED: PIPERACILL/TAZOBAC CONSULT ACTIVE PRN (18:19)
[2020-02-18] MEDS ORDERED: MoRPHine SULFATE 4 MG/ML 1 ML CARP\\VIAL IV PRN (18:19)
[2020-02-18] MEDS ORDERED: ONDANSETRON INJ 2 MG/ML 2 ML VIAL IV PRN (18:47)
[2020-02-18] MEDS ORDERED: PHARMACY GLYCEMIC MGMT CONSULT PRN (19:11)
[2020-02-18] MEDS: SODIUM CHLORIDE 0.9% 1000ML 1,000 ML IV SCH (19:27)
[2020-02-18] MEDS ORDERED: GLUCAGON FOR INJ 1 MG VIAL SQ PRN (19:28)
[2020-02-18] MEDS ORDERED: GLUCOSE 10 TABS/TUBE PO PRN (19:28)
[2020-02-18] MEDS ORDERED: DEXTROSE 50% 50 ML SYRINGE IV PRN (19:28)
[2020-02-18] MEDS ORDERED: GLUCOSE 40% GEL 15 GM TUBE PO PRN (19:28)
[2020-02-18] MEDS ORDERED: CARBOHYDRATES FOR HYPOGLYCEMIA PO PRN (19:28)
[2020-02-18] MEDS ORDERED: PIPERACILLIN/TAZOBACTAM 4.5 GM in DEXTROSE 5% 100 ML IV ONE (19:30)
[2020-02-18] MEDS ORDERED: INSULIN GLARGINE SOLOSTAR 100 UNITS/ML 3 ML PEN SC ONE (20:00)
[2020-02-18] MEDS: INSULIN ASPART 100 UNITS/ML 3 ML PEN SC SCH ×2 (20:17→23:55)
[2020-02-18] MEDS ORDERED: PATIENT'S HEIGHT AND/OR WEIGHT NEEDED SCH (20:45)
[2020-02-18] MEDS ORDERED: ACETAMINOPHEN 1,000 MG/100 ML VIAL IV PRN (22:10)
[2020-02-18] MEDS: MoRPHine SULFATE 4 MG/ML 1 ML CARP\\VIAL IV PRN (22:28)
[2020-02-18] MEDS: PIPERACILLIN/TAZOBACTAM 3.375 GM in DEXTROSE 5% 100 ML IV SCH (23:56)
[2020-02-19] MEDS: MoRPHine SULFATE 4 MG/ML 1 ML CARP\\VIAL IV PRN ×2 (01:56→07:19)
[2020-02-19] MEDS: INSULIN ASPART 100 UNITS/ML 3 ML PEN SC SCH ×6 (03:12→21:02)
[2020-02-19] MEDS: SODIUM CHLORIDE 0.9% 1000ML 1,000 ML IV SCH (05:09)
[2020-02-19 05:55] LABS: Basophils # (auto) 0.04 K/uL (0-0.2); Basophils % (auto) 0.5 %; Eosinophils % (auto) 3.9 %; Hematocrit (blood only) 40.2 % (42-52); Hemoglobin 13.5 g/dL (14.0-18.0); Immature Granulocytes # (auto) 0.04 K/uL (0.00-0.02); Immature Granulocytes % (auto) 0.5 %; Lymphocytes # (auto) 2.58 K/uL (1.2-3.4); Lymphocytes % (auto) 33.3 %; Mean Corpuscular Hemoglobin 28.2 pg (25-34); Mean Corpuscular Hgb Conc 33.6 g/dL (32-36); Mean Corpuscular Volume 84.1 fL (80-100); Mean Platelet Volume 11.1 fL (7.4-10.4); Monocytes # (auto) 0.67 K/uL (0.11-0.59); Monocytes % (auto) 8.7 %; Neutrophils # (auto) 4.11 K/uL (1.4-6.5); Neutrophils % (auto) 53.1 %; Platelet Count 184 K/uL (130-400); RDW Coefficient of Variation 12.6 % (11.5-14.5); RDW Standard Deviation 38.4 fL (36.4-46.3); Red Blood Count 4.78 M/uL (4.7-6.1); White Blood Count 7.74 K/uL (4.8-10.8)
[2020-02-19 06:05] LABS: Appearance Urine Clear (Clear); Bilirubin Urine Negative (Negative); Blood Urine Negative (Negative); Color Urine Yellow; Glucose Urine UA 3+ (Negative); Ketones Urine Trace (Negative); Leukocyte Esterase Urine Negative (Negative); Nitrite Urine Negative (Negative); Protein Urine Negative (Negative); Specific Gravity Urine 1.044 (1.000-1.030); Urobilinogen Urine Negative (Negative)
[2020-02-19 06:24] LABS: BUN Creatinine Ratio 9.9 (10-20); Calcium 8.8 mg/dl (8.5-10.1); Creatinine Clr Calc Pharmacy 73.8 ml/min; Est GFR (African American) 90.7; Est GFR (Non-African American) 78.3; Potassium 3.9 mmol/L (3.5-5.1)
--- NOTE | 2020-02-19 06:57 | Hospitalist Consultation ---
Date of Consultation February 18, 2020 Assessment & Plan (1) Acute appendicitis: 54 year old male with history of DM 2 , HLD, Fibromyalgia presenting with appendicitis. ACUTE APPENDICITIS continue IV Zosyn plan for possible surgical intervention in AM Morphine increased to 4mg as per patient's request DM 2 A1c 8.8 on [facility] Glycemic Control consulted, confirmed with Pharmacist Jose Angel Jovel on Insulin Sliding Scale monitor Thank you for this consultation. We will follow the patient with you during their hospital stay. You can reach a member of the [facility] Hospitalist Team 15/01 via pager @ [phone]. Dr. Dior will be following the patient. History of Present Illness Reason for Consultation: DM management Requesting Physician: Dr. Asencio Attending Physician: Kyle Asencio MD History of Present Illness 54 year old male with history of DM 2 , HLD, Fibromyalgia presenting with appendicitis. Patient presents with progressive abdominal pain. CT abdomen/pelvis: 1. The appendix is mildly dilated and fluid-filled, and the appendiceal wall appears mildly thickened and hyperemic. There is no surrounding inflammatory change. Mild acute appendicitis is not excluded and clinical correlation will be required. 2. Mild to moderate colonic fecal rete Patient has been placed on NPO status, IV Zosyn, IV fluids. BSGs noted to be 135- 292 on [place] Sliding Scale. Patient seen resting in bed, watching TV, not in distress but does report significant RLQ pain especially with movement. No nausea, chills, dyspnea. No other symptoms. Allergies Allergy/AdvReac Type Severity Reaction Status Date / Time atorvastatin Allergy Verified 06/11/19 09:59 Home Medications Home Medications Medication Instructions Recorded Confirmed Type insulin aspart U-100 [Novolog 4 unit SUBCUT AC 02/18/20 02/18/20 History Flexpen U-100 Insulin] insulin glargine [Lantus Solostar 10 - 15 unit SUBCUT HS 02/18/20 02/18/20 History U-100 Insulin] liraglutide [Victoza 3-Eric] 1.8 mg SUBCUT QAM 02/18/20 02/18/20 History Patient History Medical History Chronic vertigo Diabetes mellitus, type 2 Diabetic polyneuropathy DJD (degenerative joint disease) of knee Dyslipidemia NO LONGER TAKES MEDS Fibromyalgia (07/05/11) Migraine headache Sensorineural hearing loss (SNHL) of both ears Tinnitus of both ears Surgical History H/O colonoscopy H/O eye surgery "as infant and in 2008 x 2" H/O knee surgery LEFT KNEE X 2 AND RIGHT KNEE X 2 Family History Father Diabetes Leukemia Mother Arthritis Grandfather Prostate cancer Social History Smoking Status: Never smoker Second Hand Exposure: No; Hx Alcohol Use: No Hx Substance Use: No Preferred Language: Pashto Communication Ability: Effective 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 Beliefs That Will Affect Care: None Current Living Situation: Family Current Living Situation Comment: House Other Information That Helps Us Care for You: No Feels Safe at Home: Yes Safety Concerns: Feels Safe At This Time Review of Systems Review of Systems: All systems reviewed & are unremarkable except as noted in HPI & below Physical Exam Physical Exam: General- oriented x 3, not in distress, speaks in sentences with no effort or accessory muscle use Head- atraumatic Eyes- PERRL, EOMI, anicteric ENT- oropharynx clear Neck- supple, no JVD, no adenopathy, no thyromegaly; carotids +2/2, no bruits appreciated Lungs- clear to auscultation bilaterally, no rales/wheezes Heart- normal rate, regular rhythm; no murmur, no gallop, no rub appreciated Abdomen- normal bowel sounds, nondistended, soft, (+) mild tenderness RLQ, no masses or hepatosplenomegaly Extremities- no pretibial edema, no calf tenderness; peripheral pulses intact Neuro- alert, oriented x 3; CN 2-12 grossly intact; motor 5/5 bilaterally;sensation 100% on all extremities; no other gross focal neurologic deficits Skin- warm & dry Results & Data Results & Data ([facility]) Vital Signs (Past 12 Hours) Vital Signs Temp Pulse Pulse Resp BP BP Pulse Ox 02/18/20 17:42 90 19 131/84 99 02/18/20 15:51 36.9 C 93 H 18 141/91 H 100 Laboratory Results all noted and reviewed (1) Acute appendicitis Acute appendicitis type: unspecified acute appendicitis type Qualified Code(s): K35.80 - Unspecified acute appendicitis
--- NOTE | 2020-02-19 07:23 | Anesthesiology Consultation ---
Date of Service February 19, 2020 Assessment & Plan (1) Encounter for pre-operative examination: Chart Review Chart Review: Acceptable Risk for Surgery History Surgery Operation Date: 02/19/20 08:55 Proposed Procedures p Laparoscopic Appendectomy - Kyle Asencio MD s Laparoscopic Cholecystectomy - Kyle Asencio MD Height/Weight Height: 5 ft 7 in Weight: 77.5 kg Allergies Allergy/AdvReac Type Severity Reaction Status Date / Time atorvastatin Allergy Verified 06/11/19 09:59 Medications Home Medications Medication Instructions Recorded Confirmed Last Taken insulin aspart U-100 [Novolog 4 unit SUBCUT AC 02/18/20 02/18/20 Unknown Flexpen U-100 Insulin] insulin glargine [Lantus Solostar 10 - 15 unit SUBCUT HS 02/18/20 02/18/20 Unk nown U-100 Insulin] liraglutide [Victoza 3-Eric] 1.8 mg SUBCUT QAM 02/18/20 02/18/20 Unknown Active Medications Generic Name Dose Route Start Last Admin Trade Name Freq PRN Reason Stop Dose Admin Acetaminophen 650 mg 02/18/20 18:19 02/18/20 19:37 Acetaminophen 325 Mg Tab PO 03/19/20 18:18 650 mg Q6H PRN Administration MILD Pain (Scale 1,2,3) Sodium Chloride 1,000 mls @ 100 mls/hr 02/18/20 18:19 02/19/20 05:09 Nss 1000ml IV 03/19/20 18:18 100 mls/hr .Q10H YESI Administration Piperacillin Sod/Tazobactam 115 mls @ 28.75 mls/hr 02/19/20 00:00 02/19/20 04:33 Sod 3.375 gm/ Dextrose IV 02/29/20 00:00 Infused Q8H YESI Infusion Protocol Insulin Aspart 0 units 02/18/20 20:00 02/18/20 20:17 Insulin Aspart 100 Units/Ml 3 Ml Pen SC 03/19/20 19:59 8 units ACHS YESI Administration Morphine Sulfate 4 mg 02/18/20 22:11 02/19/20 01:56 Morphine Sulfate 4 Mg/Ml 1 Ml Carp\\Vial IV 03/03/20 18:18 4 mg Q3H PRN Administration MODERATE Pain (Scale 4,5,6) Past Medical History Medical History Chronic vertigo Diabetes mellitus, type 2 Diabetic polyneuropathy DJD (degenerative joint disease) of knee Dyslipidemia NO LONGER TAKES MEDS Fibromyalgia (07/05/11) Migraine headache Sensorineural hearing loss (SNHL) of both ears Tinnitus of both ears Past Family History Family History Father Diabetes Leukemia Mother Arthritis Grandfather Prostate cancer Past Surgical History Surgical History H/O colonoscopy H/O eye surgery "as and in 2008 x 2" H/O knee surgery LEFT KNEE X 2 AND RIGHT KNEE X 2 Social History Smoking Status: Never smoker Hx Alcohol Use: No Hx Substance Use: No substance use type: does not use Physical Exam Vital Signs Last Vital Signs Temp 36.6 C 02/18/20 23:33 Pulse 80 02/18/20 23:33 Resp 18 02/18/20 23:33 BP 122/76 02/18/20 23:33 Pulse Ox 95 02/18/20 23:33 Testing Laboratory Results 02/19/20 05:41 02/19/20 05:41 Urine Color Yellow 02/19/20 05:58 Urine Appearance Clear (Clear) 02/19/20 05:58 Urine pH 5.0 (4.5-7.5) 02/19/20 05:58 Ur Specific Jackson 1.044 (1.000-1.030) H 02/19/20 05:58 Urine Protein Negative (Negative) 02/19/20 05:58 Urine Glucose (UA) 3+ (Negative) H 02/19/20 05:58 Urine Ketones Trace (Negative) H 02/19/20 05:58 Urine Nitrite Negative (Negative) 02/19/20 05:58 Ur Leukocyte Esterase Negative (Negative) 02/19/20 05:58 02/19/20 02/19/20 02/18/20 05:55 03:06 23:52 POC Glucose 186 H 208 H 179 H 02/18/20 02/18/20 22:11 19:25 POC Glucose 223 H 292 H Electrocardiogram Date: 04/25/19 Findings: + NSR @ (64)
[2020-02-19] MEDS: PIPERACILLIN/TAZOBACTAM 3.375 GM in DEXTROSE 5% 100 ML IV SCH (07:24)
--- NOTE | 2020-02-19 08:27 | Ultrasound Report ---
ABDOMINAL ULTRASOUND, RIGHT UPPER QUADRANT HISTORY: Generalized abdominal pain.. COMPARISON: Abdomen and pelvis CT 02/18/2020. FINDINGS: Pancreas: The pancreas demonstrates a normal echotexture. Liver: Unremarkable. Gallbladder: Mildly distended. No gallbladder wall thickening. No gallstones. Negative sonographic Mu rphy sign. CBD: 9 mm in diameter. Right kidney: No hydronephrosis. IMPRESSION: 1. Mildly dilated common bile duct and mildly distended gallbladder. A distal common bile duct obstru ction cannot be excluded. MRCP recommended for further evaluation. 2. Normal liver. ACT 112: Negative or not required by law. Electronically signed by: Anatoliy Vanegas M.D. 02/19/2020 8:26 AM
--- NOTE | 2020-02-19 09:04 | History & Physical Bridge Note ---
Date of Service February 19, 2020 History & Physical Bridge Note I have examined the patient, reviewed the History & Physical and in the interval since the performance of the History & Physical I have noted the following changes of clinical significance: no changes noted Patient underwent an ultrasound the gallbladder this morning which showed no cholelithiasis the question common bile duct may be larger than normal they recommend an MRCP at this point will proceed with laparoscopic appendectomy and further evaluate the biliary system in the future risk and complication of the surgery were explained to the patient including bleeding infection converting to an open procedure and he would like to proceed accordingly all questions were answered
[2020-02-19] MEDS ORDERED: LABETALOL HCL IV 5 MG/ML 20ML IV PRN (09:08)
[2020-02-19] MEDS ORDERED: ONDANSETRON INJ 2 MG/ML 2 ML VIAL IV PRN (09:08)
[2020-02-19] MEDS ORDERED: ATROPINE SULFATE 0.1 MG/ML 10ML SYR IV PRN (09:08)
[2020-02-19] MEDS ORDERED: KETOROLAC 30 MG/ML VIAL IV PRN (09:08)
[2020-02-19] MEDS ORDERED: MIDAZOLAM HCL 1 MG/ML 2ML VIAL ONE (09:20)
[2020-02-19] MEDS ORDERED: fentaNYL citrate 100 MCG/2 ML VIAL ONE (09:21)
[2020-02-19] MEDS ORDERED: LIDOCAINE/EPINEPHRINE 1% 20 ML VIAL ONE (09:24)
[2020-02-19] MEDS ORDERED: PHENYLEPHRINE 100MCG/ML 5ML SYR ONE (10:10)
[2020-02-19] MEDS ORDERED: LIDOCAINE HCL 2% 2 ML VIAL/AMP(20MG/ML) INFIL ONE (10:10)
[2020-02-19] MEDS ORDERED: ROCURONIUM BROMIDE 10 MG/ML 5 ML VIAL IV ONE (10:11)
[2020-02-19] MEDS ORDERED: PROPOFOL IV EMULSION 10 MG/ML 20 ML VIAL IV ONE (10:11)
[2020-02-19] MEDS ORDERED: ONDANSETRON INJ 2 MG/ML 2 ML VIAL ONE (10:11)
[2020-02-19] MEDS ORDERED: KETOROLAC 30 MG/ML VIAL ONE (10:12)
--- NOTE | 2020-02-19 10:40 | Post Operative Brief Note ---
PG Immediate Post Op with CF Date of Surgery February 19, 2020 Pre & Post Diagnosis Operation Date: 02/19/20 08:55 Pre-Op Diagnosis: Acute Appendicitis Post-Op Diagnosis: Acute Appendicitis I identified the patient and participated in the time-out.: Yes Procedure Operation Date: 02/19/20 08:55 Actual Procedures p Laparoscopic Appendectomy(Not Applicable) - Kyle Asencio MD Surgeon Kyle Asencio MD Curriculum Manager sales support technician Estimated Blood Loss 5 Findings Consistent with Post-Op Diagnosis Specimens Specimen Description: A: Appendix
--- NOTE | 2020-02-19 10:50 | Operative Report ---
PG Post Operative Report Pre & Post Diagnosis Operation Date: 02/19/20 08:55 Pre-Op Diagnosis: Acute Appendicitis Post-Op Diagnosis: Acute Appendicitis I identified the patient and participated in the time-out.: Yes Procedure Operation Date: 02/19/20 08:55 Actual Procedures p Laparoscopic Appendectomy(Not Applicable) - Kyle Asencio MD The patient was brought into the operating theater general endotracheal anesthesia the abdomen was prepped Betadine scrub and solution properly draped timeout was had patient identified made a small incision supraumbilically sufficient for a Veress needle followed by CO2 to 15 mmHg and a 5 mm trocar followed point of interest back to no injury identified we then looked all over the abdomen the liver appeared free of any pathology the omentum was free of any implants and the bowel itself looked normal the this point we can see the tip of the cecum therefore under direct visualization we placed a 5 mm right upper quadrant port with preemptive local analgesia 1% Xylocaine we able then to follow with the cecal cap and identified the appendix which was quite long as we elevated at quite thickened. All special note was the tip that seem to be more prominent than the rest. At this point I like to place a 5 mm left lower quadrant port after we converted the 5 mm umbilical port to 11 mm on direct visualization the camera was placed in left lower quadrant port and with the 2 umbilical and right upper quadrant port we were able to elevate the appendix and created a window between the mesoappendix and the base of the appendix then were able to fire a blue load of the JOSE right at the base of the appendix. Hemostasis was excellent therefore we then elevated the rest of the appendix and took the mesoappendix was quite thickened and small bites using a 10 mm clips to control any oozing and no bleeding was appreciated. This point we placed the patient in reverse Trendelenburg rotated to the right and suctioned out the area and hemostasis was excellent. The appendix was then placed in an Endopouch and taken out intact through the umbilical port there was a small bleeder that we noticed as we took the line millimeter trocar out that we controlled intra- abdominally from electrocautery the camera was then replaced the right upper quadrant port visualize left lower quadrant port there was no bleeding is retracted move that out and last right upper quadrant port was removed we used Chelsey clamps to elevate the fascia that we had open and closed with 2 interrupted [id number] of 0 Vicryl. The other wounds were closed with 4-0 Monocryl Steri-Strips applied procedure was tolerated well by the patient estimated blood loss 5 cc patient was taken recovery in good condition Surgeon Kyle Asencio MD Assistant Elementary Teacher instructional technology coordinator Estimated Blood Loss 5 Findings Consistent with Post-Op Diagnosis Specimens appendix Description of Procedure merda I attest to the content of the Intraoperative Record and any orders documented therein. Any exceptions are noted below.
[2020-02-19] MEDS: HYDROmorphone INJ 1 MG/ML SYRINGE IV PRN ×4 (11:07→11:22)
--- NOTE | 2020-02-19 11:40 | Anesthesiology Progress Note ---
Date of Service February 19, 2020 Anesthesia Post Procedure Vital Signs Vital Signs: Temp Pulse Pulse Pulse Resp BP BP 02/19/20 11:30 36.4 C L 83 16 133/79 02/19/20 11:20 76 15 134/77 02/19/20 11:10 72 16 149/81 H 02/19/20 11:00 80 15 145/88 H 02/19/20 10:51 36.2 C L 93 H 16 159/86 H 02/19/20 08:35 37 C 67 16 139/85 02/19/20 07:47 36.5 C 98 H 18 119/75 02/18/20 23:33 36.6 C 80 18 122/76 02/18/20 17:42 90 19 131/84 02/18/20 15:51 36.9 C 93 H 18 141/91 H Pulse Ox 02/19/20 11:30 97 02/19/20 11:20 92 02/19/20 11:10 94 02/19/20 11:00 98 02/19/20 10:51 99 02/19/20 08:35 97 02/19/20 07:47 96 02/18/20 23:33 95 02/18/20 17:42 99 02/18/20 15:51 100 Pain Intensity Bilateral Head: Pain Intensity: 5 Abdomen: Pain Intensity: 5 Transfer of Care Handoff Completed per policy Notes Mental Status: alert / awake / arousable Patient Amnestic to Procedure: Yes Nausea / Vomiting: adequately controlled Pain: adequately controlled Airway Patency, RR, SpO2: stable & adequate BP & HR: stable & adequate Hydration State: stable & adequate Anesthetic Complications: no major complications apparent
[2020-02-19] MEDS: LACTATED RINGER'S 1,000 ML IV SCH (12:06)
[2020-02-19] MEDS ORDERED: MoRPHine SULFATE 2 MG/ML CARP IV PRN (12:06)
[2020-02-19] MEDS ORDERED: GLYCOPYRROLATE 0.2 MG/ML VIAL ONE (12:50)
[2020-02-19] MEDS ORDERED: NEOSTIGMINE METHYLSULFATE 5 MG/5 ML SYR ONE (12:50)
[2020-02-19] MEDS ORDERED: INSULIN GLARGINE SOLOSTAR 100 UNITS/ML 3 ML PEN SC ONE (13:00)
[2020-02-19] MEDS ORDERED: Nursing to Pharmacy Communication SCH (14:00)
[2020-02-19] MEDS: OXYCODONE/ACETAMINOPHEN 5mg/325mg TAB PO PRN ×3 (14:08→23:35)
--- NOTE | 2020-02-19 14:11 | Pharmacy Report ---
Glycemic Control Consultation - Date of Service February 19, 2020 - Scope Scope: Glycemic Pharmacist consulted for glycemic control and to write orders per [facility] inpatient glycemic control protocol. - Objective Weight: 77.5 kg Accuchecks BSG (last 24hrs): 02/18/20 02/18/20 02/18/20 16:10 19:25 22:11 Glucose 284 H POC Glucose 292 H 223 H 02/18/20 02/19/20 02/19/20 23:52 03:06 05:41 Glucose 188 H POC Glucose 179 H 208 H 02/19/20 02/19/20 05:55 11:05 Glucose POC Glucose 186 H 205 H Laboratory Data (last 24hrs): 02/18/20 02/19/20 16:10 05:41 Potassium 3.8 3.9 Carbon Dioxide 29 30 Anion Gap 5.0 3.0 Creatinine 1.11 1.07 Est Cr Clr Drug Dosing Not Reportable 73.8 - Recent Pertinent Medications Outpatient Anti-diabetic Regimen: * Lantus 10-15 units nightly * Novolog 4 units AC + SSI * Victoza 1.8 mg SQ daily * A1c = 8.1 % 11/2019 (per [facility] Hospitalist) The patient is currently receiving: * Basal insulin: Lantus 10 units SQ x 1 * Correctional Insulin: Novolog Correction per scale ACHS Goal Range: Low 110 mg/dL - High 140 mg/dL Correction Factor: 30 mg/dL/unit * Prandial insulin: Per carb ratio of 1 unit per 10 grams CHO consumed * Oral Agents: N/A Risk Factors for Insulin Resistance: * Infection: was on Zosyn for appendix * Recent Surgery: POD 0 for appendectomy * Diet: T2DM - Assessment & Plan Assessment & Plan: ASSESSMENT: * Mr Miles is a 54 y/o M with a PMH of moderately controlled T2DM on insulin basal/bolus + Victoza who presents with abdominal pain and appendicitis. Patient was made NPO last night and underwent appendectomy today. * Patient received 10 units of Lantus last night along with 10 units of Novolog. Fasting this morning was 188 mg/dL. * After surgery, patient was given a diet. * Start with slightly less than weight-based stress of 2 Lantus (10 units SQ BID) since patient's outpatient regimen may not provide the best coverage. Uti lize weight-based stress of 2 Novolog for now. * ADA & AACE recommend a goal blood sugar range 140-180 mg/dl for the majority of critically ill & non-critically ill patients. However, more stringent targets may be selected in individual cases. Will utilize more stringent goal of 110-140mg/dl based on patient age & comorbidities. Additionally, tighter glycemic control is warranted to facilitate wound healing. PLAN FOR INPATIENT GLYCEMIC CONTROL: * Holding outpatient Victoza * Basal insulin * Lantus 10 units SQ BID * Bolus insulin * NovoLog per scale ACHS or Q6hrs while NPO * Goal Range: Low 110 mg/dL - High 140 mg/dL * Correction Factor: 30 mg/dL/unit * Nutritional / Prandial insulin per carb ratio of 1 unit per 10 grams CHO consumed * Please note that the plan above was derived based on current level of insulin resistance and hospital stress. These recommendations are appropriate for inpatient admission only. Plan of care upon discharge will need to be reassessed to avoid potential outpatient hypo/hyperglycemia. Thank you.
--- NOTE | 2020-02-19 17:46 | Hospitalist Progress Note ---
Date of Service February 19, 2020 Assessment & Plan (1) Acute appendicitis: Patient is a 54-year-old male with H/O DM 2 , HLD, Fibromyalgia presents with appendicitis. Acute appendicitis --CT ABD:The appendix is mildly dilated and fluid-filled, and the appendiceal wall appears mildly thickened and hyperemic. There is no surrounding inflammatory change. Mild acute appendicitis is not excluded and clinical correlation will be required. Mild to moderate colonic fecal retention. No bowel obstruction is seen. S/P Laparoscopic Appendectomy POD #0 Continue IV fluids Received IV antibiotics Pain control Appreciate surgery input Bowel regimen to prevent constipation Advance diet as tolerated CBD Dilatation: Gall Bladder USD:Mildly dilated common bile duct and mildly distended gallbladder. A distal common bile duct obstruction cannot be excluded. MRCP recommended for further evaluation. Normal liver. MRCP tomorrow Further management based on MRCP results DM Type II Last HbA1C: A1c 8.8 on Victoza Pharmacy Glycemic Control consulted Continue insulin therapy Monitor BGs DVT Px: SCDs Code Status Full Code Disposition As per Primary team Admission and Anticipated Discharge Date Admission Date: February 18, 2020 Subjective Patient is seen and examined at bedside Had appendectomy today Reports pain at surgical site Denies chest pain, shortness of breath, dizziness, nausea Offers no other complaints Review of Systems Review of Systems: All systems reviewed & are unremarkable except as noted in HPI & below Physical Exam Physical Exam: Physical Exam: Vitals signs as noted above General Appearance:Moderately built and nourished, no apparent distress Head: normocephalic, Atraumatic Eyes: normal inspection, EOMI Neck: supple, Trachea midline Respiratory/Chest: Normal breath sounds, CTA, No accessory muscle use Cardiovascular: S1, S2, No murmur Abdomen/GI:Soft, mild tender, + laparoscopic surgical scar, bowel sounds present Extremities/Musculoskelatal:normal inspection, no edema Neurologic/Psych:AAOX3, grossly no focal neurological deficits Skin: normal color, warm Results & Data Results & Data ([facility]) Vital Signs (Past 12 Hours) Vital Signs Temp Pulse Pulse Resp BP Pulse Ox 02/19/20 15:24 36.8 C 83 18 123/77 95 02/19/20 14:09 36.4 C L 89 18 115/72 95 02/19/20 12:57 70 16 134/79 98 02/19/20 12:32 36.4 C L 94 H 18 138/74 95 02/19/20 12:00 36.5 C 55 L 16 130/78 95 02/19/20 11:45 58 L 15 150/78 H 97 02/19/20 11:30 36.4 C L 83 16 133/79 97 02/19/20 11:20 76 15 134/77 92 02/19/20 11:10 72 16 149/81 H 94 02/19/20 11:00 80 15 145/88 H 98 02/19/20 10:51 36.2 C L 93 H 16 159/86 H 99 02/19/20 08:35 37 C 67 16 139/85 97 02/19/20 07:47 36.5 C 98 H 18 119/75 96 Laboratory Results Short CBC 02/19/20 Range/Units 05:41 WBC 7.74 (4.8-10.8) K/uL Hgb 13.5 L (14.0-18.0) g/dL Hct 40.2 L (42-52) % Plt Count 184 (130-400) K/uL BMP 02/19/20 05:41 Sodium 139 Potassium 3.9 Chloride 105 Carbon Dioxide 30 BUN 11 Creatinine 1.07 Glucose 188 H Calcium 8.8 Urine 02/19/20 Range/Units 05:58 Urine Color Yellow Urine Appearance Clear (Clear) Urine pH 5.0 (4.5-7.5) Ur Specific [place] 1.044 H (1.000-1.030) Urine Protein Negative (Negative) Urine Glucose (UA) 3+ H (Negative) (1) Acute appendicitis Acute appendicitis type: unspecified acute appendicitis type Qualified Code(s): K35.80 - Unspecified acute appendicitis
[2020-02-19] MEDS: POLYETHYLENE (MIRALAX) 17 GM PACK PO SCH (19:45)
[2020-02-19] MEDS ORDERED: INSULIN GLARGINE SOLOSTAR 100 UNITS/ML 3 ML PEN SC SCH (21:00)
[2020-02-19] MEDS ORDERED: COUGH DROP (SUGAR FREE) LOZ 24 LOZ/1 BOX BUCCAL PRN (22:25)
[2020-02-20] MEDS: LACTATED RINGER'S 1,000 ML IV SCH ×2 (00:37→13:17)
[2020-02-20] MEDS: OXYCODONE/ACETAMINOPHEN 5mg/325mg TAB PO PRN ×2 (03:32→13:22)
[2020-02-20 06:18] LABS: Hematocrit (blood only) 39.8 % (42-52); Hemoglobin 13.4 g/dL (14.0-18.0); Mean Corpuscular Hemoglobin 28.6 pg (25-34); Mean Corpuscular Hgb Conc 33.7 g/dL (32-36); Mean Platelet Volume 11.4 fL (7.4-10.4); Platelet Count 176 K/uL (130-400); RDW Coefficient of Variation 12.8 % (11.5-14.5); Red Blood Count 4.68 M/uL (4.7-6.1); White Blood Count 8.35 K/uL (4.8-10.8)
[2020-02-20 06:49] LABS: Estimated Average Glucose 186 mg/dl; Hemoglobin A1C 8.1 % (4.5-5.6)
[2020-02-20 06:50] LABS: BUN Creatinine Ratio 10.8 (10-20); Calcium 8.5 mg/dl (8.5-10.1); Creatinine Clr Calc Pharmacy 86.8 ml/min; Est GFR (African American) 110.3; Est GFR (Non-African American) 95.2; Magnesium 2.1 mg/dl (1.8-2.4); Potassium 3.8 mmol/L (3.5-5.1)
--- NOTE | 2020-02-20 08:20 | Anesthesiology Progress Note ---
Date of Service February 20, 2020 Anesthesia Post Procedure Vital Signs Vital Signs: Temp Pulse Pulse Resp BP Pulse Ox 02/20/20 07:32 36.7 C 76 18 136/77 96 02/20/20 03:47 36.9 C 82 15 150/79 H 97 02/19/20 15:24 36.8 C 83 18 123/77 95 02/19/20 14:09 36.4 C L 89 18 115/72 95 02/19/20 12:57 70 16 134/79 98 02/19/20 12:32 36.4 C L 94 H 18 138/74 95 02/19/20 12:00 36.5 C 55 L 16 130/78 95 02/19/20 11:45 58 L 15 150/78 H 97 02/19/20 11:30 36.4 C L 83 16 133/79 97 02/19/20 11:20 76 15 134/77 92 02/19/20 11:10 72 16 149/81 H 94 02/19/20 11:00 80 15 145/88 H 98 02/19/20 10:51 36.2 C L 93 H 16 159/86 H 99 02/19/20 08:35 37 C 67 16 139/85 97 Pain Intensity Bilateral Head: Pain Intensity: 5 Abdomen: Pain Intensity: 4 Notes Mental Status: alert / awake / arousable and participated in evaluation Patient Amnestic to Procedure: Yes Nausea / Vomiting: adequately controlled Pain: adequately controlled Airway Patency, RR, SpO2: stable & adequate BP & HR: stable & adequate Hydration State: stable & adequate Anesthetic Complications: no major complications apparent and Pt Satisfied with anesthetic care
[2020-02-20] MEDS: INSULIN ASPART 100 UNITS/ML 3 ML PEN SC SCH ×3 (08:38→18:22)
[2020-02-20] MEDS ORDERED: INSULIN GLARGINE SOLOSTAR 100 UNITS/ML 3 ML PEN SC ONE (09:00)
[2020-02-20] MEDS ORDERED: INSULIN GLARGINE SOLOSTAR 100 UNITS/ML 3 ML PEN SC SCH ×2 (09:00→21:00)
--- NOTE | 2020-02-20 09:04 | Pharmacy Report ---
Glycemic Control Progress Note - Date of Service February 20, 2020 - Scope Glycemic Pharmacist consulted for glycemic control to write orders per [facility] inpatient glycemic control protocol. - Objective Accuchecks BSG(last 24 hours):: 02/19/20 02/19/20 02/19/20 11:05 17:13 20:37 Glucose POC Glucose 205 H 187 H 226 H 02/20/20 02/20/20 05:42 08:12 Glucose 170 H POC Glucose 128 H HbA1c:: Hemoglobin A1c 8.1 % (4.5-5.6) H 02/20/20 05:42 - Recent Pertinent Medications The patient is currently receiving: * Basal insulin: Lantus 10 units every 12 hours * Correctional Insulin: Novolog Correction per scale ACHS Goal Range: Low 110 mg/dL - High 140 mg/dL Correction Factor: 30 mg/dL/unit * Prandial insulin: Per carb ratio of 1 unit per 10 grams CHO consumed - Outpatient Anti-Diabetic Meds Lantus 10-15 units HS Novolog 4 units with meals Victoza 1.8 mg daily - Assessment & Plan ASSESSMENT: * See progress note from 02/19/2020 for more background info, in short: * Pt receiving SQ basal bolus insulin regimen for hyperglycemia secondary to baseline DM (outpatient regimen on hold). Patient is POD 1 from appendectomy. He is currently NPO for MRCP. * Patient is currently receiving an average of 43 units of insulin per day * 20 units of basal insulin * 23 units of prandial/correctional insulin * BSGs ranging 186 - 226 mg/dl over the past 24hrs * Changes needed to insulin regimen: * AM Fasting BSG = 128 mg/dl. This is in goal range for patient based on inpatient targets and co-morbidities. Therefore Basal insulin will be continued at Lantus 10 units BID. Half-dose this morning due to NPO status. * Post-prandial BSGs were elevated yesterday which may have been related to appendectomy or patient was basal deficient. Tighten CF/CR slightly. * Total daily dose = 45 units --- adjusted insulin appropriately. * Additional notes / comments: hold Victoza PLAN FOR INPATIENT GLYCEMIC CONTROL: * Continuing Lantus 10 units SQ BID (Lantus 5 units SQ x 1 this morning for NPO status) * TIGHTENING correction factor to 25 mg/dl/unit * TIGHTENING carb ratio to 1 unit per 8 grams CHO consumed * Continuing goal range of Low 110 mg/dL - High 140 mg/dL RECOMMENDATIONS FOR DISCHARGE: * Patient's HbA1C above goal range currently. * goal < 7% * Currently HbA1C = 8.1 % * Recommend working with PCP to titrate insulin based upon home BSGs. Most likely patient will require more basal insulin (such as 20 units nightly). Thank you.
[2020-02-20] MEDS: POLYETHYLENE (MIRALAX) 17 GM PACK PO SCH ×2 (10:30→13:18)
--- NOTE | 2020-02-20 11:15 | Surgery Progress Note ---
Date of Service February 20, 2020 Assessment & Plan (1) Acute appendicitis: Intra-abdominal findings regarding his appendix was discussed with the patient He is scheduled for an MRCP today she has an ultrasound of the gallbladder revealed that his common bile duct may be a little bit more prominent and could not rule out any distal filling defect Certainly the patient could have had this is an outpatient but he wanted to have it done now with hopefully once he has this done today he will be discharged if there is anything that could be done or needs to be done to evaluate further can be done as an outpatient Instructions were given to him regarding discharge diet activity and meds We will see him back in our office in [address] do not lift anything every 10 pounds he may shower and we will give a prescription for oral analgesics possibly just 10 tablets Present on Admission?: Yes Admission and Anticipated Discharge Date Admission Date: February 18, 2020 Uma Dutta is resting comfortably in bed without any significant abdominal pain just some discomfort at the puncture sites Physical Exam Physical Exam: His abdomen is completely benign the trocar sites Steri-Strips are intact Results & Data ([facility]) Vital Signs (Past 12 Hours) Vital Signs Temp Pulse Resp BP Pulse Ox 02/20/20 07:32 36.7 C 76 18 136/77 96 02/20/20 03:47 36.9 C 82 15 150/79 H 97 PG Care Time/CCT Total # of Minutes Spent Total Time Spent with Patient: Total time spent is greater than 50% in coordination of care (as documented) at patient's floor/unit and/or counseling patient: Coding Level of Care Code None Diagnoses Acute appendicitis K35.80 Acute appendicitis type: unspecified acute appendicitis type (1) Acute appendicitis Acute appendicitis type: unspecified acute appendicitis type Qualified Code(s): K35.80 - Unspecified acute appendicitis
--- NOTE | 2020-02-20 13:11 | Magnetic Resonance Report ---
MR MRCP CLINICAL HISTORY: Abnormal ultrasound. Abdominal pain. Possible common bile duct filling defect. COMPARISON STUDY: CT scan dated 02/18/2020, ultrasound dated 02/19/2020 FINDINGS: A breath-hold images were acquired in the axial sagittal and coronal planes. MIP images wer e acquired There are trace bilateral pleural effusions. The pancreatic duct is of normal caliber. The common bile duct is of normal caliber measuring 5.7 mm. No ductal filling defects are visualized. No gallstones are visualized. IMPRESSION: 1. Normal caliber pancreatic duct 2. No gallstones identified 3. No evidence of intra or extrahepatic biliary ductal dilatation. ACT 112: Negative or not required by law. Electronically signed by: Kali Eastman M.D. 02/20/2020 1:10 PM
--- NOTE | 2020-02-20 17:53 | Hospitalist Progress Note ---
Date of Service February 20, 2020 Assessment & Plan (1) Acute appendicitis: Patient is a 54-year-old male with H/O DM 2 , HLD, Fibromyalgia presents with appendicitis. Acute appendicitis --CT ABD:The appendix is mildly dilated and fluid-filled, and the appendiceal wall appears mildly thickened and hyperemic. There is no surrounding inflammatory change. Mild acute appendicitis is not excluded and clinical correlation will be required. Mild to moderate colonic fecal retention. No bowel obstruction is seen. S/P Laparoscopic Appendectomy POD #1 Received IV fluids, IV antibiotics Pain control Appreciate surgery input Bowel regimen to prevent constipation Tolerated diet Needs follow-up with surgery in 1 week CBD Dilatation: Gall Bladder USD:Mildly dilated common bile duct and mildly distended gallbladder. A distal common bile duct obstruction cannot be excluded. MRCP recommended for further evaluation. Normal liver. MRCP:Normal caliber pancreatic duct. No gallstones identified. No evidence of intra or extrahepatic biliary ductal dilatation. Normal LFTs DM Type II Last HbA1C: A1c 8.8 on Victoza Pharmacy Glycemic Control consulted Continue insulin therapy Monitor BGs DVT Px: SCDs Code Status Full Code Disposition As per Primary team Admission and Anticipated Discharge Date Admission Date: February 18, 2020 Subjective Patient is seen and examined at bedside Complains of abdominal pain today Denies nausea, vomiting No BM this morning Had MRCP today which was normal Denies chest pain, shortness of breath, dizziness, nausea Review of Systems Review of Systems: All systems reviewed & are unremarkable except as noted in HPI & below Physical Exam Physical Exam: Physical Exam: Vitals signs as noted above General Appearance:Moderately built and nourished, no apparent distress Head: normocephalic, Atraumatic Eyes: normal inspection, EOMI Neck: supple, Trachea midline Respiratory/Chest: Normal breath sounds, CTA, No accessory muscle use Cardiovascular: S1, S2, No murmur Abdomen/GI:Soft, mild tender, + laparoscopic surgical scar, bowel sounds present Extremities/Musculoskelatal:normal inspection, no edema Neurologic/Psych:AAOX3, grossly no focal neurological deficits Skin: normal color, warm Results & Data Results & Data ([facility]) Vital Signs (Past 12 Hours) Vital Signs Temp Pulse Pulse Resp BP Pulse Ox 02/20/20 15:48 36.8 C 75 16 138/83 95 02/20/20 13:29 36.7 C 58 L 76 18 136/77 96 02/20/20 07:32 36.7 C 76 18 136/77 96 Laboratory Results Short CBC 02/20/20 Range/Units 05:42 WBC 8.35 (4.8-10.8) K/uL Hgb 13.4 L (14.0-18.0) g/dL Hct 39.8 L (42-52) % Plt Count 176 (130-400) K/uL BMP 02/20/20 05:42 Sodium 140 Potassium 3.8 Chloride 106 Carbon Dioxide 30 BUN 10 Creatinine 0.91 Glucose 170 H Calcium 8.5 (1) Acute appendicitis Acute appendicitis type: unspecified acute appendicitis type Qualified Code(s): K35.80 - Unspecified acute appendicitis
--- NOTE | 2020-02-29 09:46 | Discharge Summary ---
Date of Service February 29, 2020 Admission HPI Per Admitting Provider This is a 54y M with a PMH of fibromyalgia, vertigo, and depression who presents to the [facility] ED on 02/18/20 with abdominal complaints. He was called by his PCP to come be evaluated today in the ED after undergoing an outpatient CT scan that revealed findings concerning for mild acute appendicitis. Upon history taking the patient reports that he has been having abdominal issues over the past 4+ weeks including diarrhea, abdominal pain that sometimes radiates into the chest and back, increased gas and burping, and bloating. He states he has not been eating much because he feels like the food is not moving through. He states he eats a healthy diet and denies any certain foods that are aggravating. Patient reports that the symptoms have been worsening, in particular the abdominal pain. When I ask him to point where his pain is he waves his hand over the right side of his abdomen. He states that the pain can be fairly constant and at times can be sharp, crampy, and/or dull. Patient reports he has been brushing off the pain thinking it was related to his fibromyalgia, but he states he can no longer keep living with these symptoms. 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 Patient denies any prior abdominal surgical history. Of note he underwent a colonoscopy last month that revealed some diverticulosis but was otherwise unremarkable. Surgery was consulted for further evaluation. Principal Diagnosis Acute appendicitis Discharge Exam awake/alert Gastrointestinal (Abdomen) Inspection/Auscultation: + abdominal surgical incision (c/d/i ); abdomen not distended Percussion/Palpation: abdomen soft Discharge Data Allergies Allergy/AdvReac Type Severity Reaction Status Date / Time atorvastatin Allergy Verified 02/25/20 09:38 Consultations 02/18/20 17:09 ED Decision to Admit Stat 02/18/20 19:21 Consult Hospitalist Routine Procedures Performed Operation Date: 02/19/20 08:55 Actual Procedures p Laparoscopic Appendectomy(Not Applicable) - Kyle Asencio MD Ordered Studies 02/19/20 08:00 US gallbladder Stat 02/20/20 07:00 MR MRCP Routine Hospital Course (1) Acute appendicitis: This is a 54y M with a PMH of fibromyalgia, vertigo, and depression who presented to the [facility] ED on 02/18/20 with abdominal complaints. He was called by his PCP to come be evaluated today in the ED after undergoing an outpatient CT scan that revealed findings concerning for mild acute appendicitis. Patient's WBC 10 and he is afebrile. Due to patient's vague complaints along with a CT showing equivocal findings for appendicitis he was admitted to the hospital and started on IV abx with plans to take out his appendix the following day. Hospitalists were consulted to help follow along with his history of diabetes. Due to his vague abdominal complaints a RUQ US was also obtained to rule out any gallbladder etiology. This revealed a mildly dilated common bile duct and mildly distended gallbladder and showed that a distal common bile duct obstruction could not be excluded. Decision was made to proceed with a laparoscopic appendectomy on 02/19/[address] Asencio. Patient tolerated the procedure well, see op note for full details. Post operatively his diet was advanced as tolerated and pain controlled with prn pain medication. On POD#1 although patient did not have any obstructive symptoms and LFTs were within normal limited and we offered patient to undergo an MRCP as an outpatient, he preferred to have it performed during his hospitalization. The MRCP was obtained and revealed no choledocholithiasis or filling defects and no biliary ductal dilation. On 02/19 the patient was ultimately deemed stable for discharge to home. His pain was well controlled, tolerating a diet, and surgical incisions c/d/i. He was instructed to follow up in surgery clinic within 1 week for a post op follow up with Dr. Asencio. Total Time Total Time Spent Total Time Spent (In Minutes): 10 Discharge Plan Discharge Items Patient Disposition: Home - Self-Care Reason For Visit: ABD PAIN APPENDICITIS Discharge Diagnosis: laparoscopic appendectomy Condition on Discharge: Good Activity: Per Instructions section Lifting: No more than 10 pounds Bathing Comment: may shower starting 02/20/20; no soaking in tubs/pools Exercise/Sports: Wait until after follow-up appointment Driving/Machine Use: do not resume driving while taking narcotics for pain Non-emergency contact: Surgeon Call non-emergency contact if: you have any medication questions, your symptoms worsen, your pain is worsening, your pain is concerning for you, you have a fever, your temperature is above 101.5, your wound has increased redness, your wound has increased drainage and your wound pain has increased Follow-up/Referrals: Kyle Asencio MD [Surgeon] - 02/25/20 9:40 am (Please call to schedule follow up in clinic within 1 week) Chapo Cifuentes PA-C [Primary Care Provider] - 03/02/20 10:00 am Diet: Regular and Carb Consistent or DM2 Addtl Attending Provider Instructions: You may continue on a bowel regimen at home such as Miralax daily if you are used to taking this. Other stool softeners you may purchase over the counter and use as directed include Colace and Sennakot S. Pending Studies at Discharge: Yes Studies:: surgical pathology Stand-Alone Forms: [facility] [employer] Method, Smoking Cessation Medications and DC Order Prescriptions: Continued insulin aspart U-100 [Novolog Flexpen U-100 Insulin] 100 unit/mL (3 mL) Insulin Pen 4 unit SUBCUT AC RF: 0 Lantus Solostar U-100 Insulin 100 unit/mL (3 mL) insulin pen 10 - 15 unit SUBCUT HS RF: 0 Victoza 3-Eric 0.6 mg/0.1 mL (18 mg/3 mL) pen injector 1.8 mg SUBCUT QAM RF: 0 Discharge Orders: Discharge Order (Routine); Ordered 02/20/20 Ordered By: Dannielle Hein/Other Patient Handouts: High Blood Sugar (Hyperglycemia), Managing Type 2 Diabetes, Diabetes: Meal Planning Admission Data Admit Date/Time: 02/18/20 17:23 Attending Provider: Kyle Asencio Admit Provider: Kyle Asencio Primary Care Provider: Chapo Cifuentes Other Providers: Kyle Asencio ; Caio Black ; Jose Ramon Gibson ; Mary Donaldson ; Fatuma Medina ; Josseline Sorto ; Angela Jeffery ; Alison Arce ; Taz Carrillo ; Dao Nguyen ; Wilman Dangelo ; Tracie Nayak ; Sheila Espinoza ; Rola Peters ; Ethan Dior ; Roberto Nguyen ; Val Mcfarland ; Riccardo Aaron ; Sasha Valencia ; Roberto Mayes ; Kelly Marr ; Kandy Guevara ; Kenny Paulino ; Heidi Short I. ; Chirag Still Other Interventions: Discharge Summary Assessment (RN) Last Done: 02/20/20 13:29 Coding Level of Care Code D/C Day Management <30 mins Diagnoses Acute appendicitis K35.80 Acute appendicitis type: unspecified acute appendicitis type
== END 2020-02-20 18:59 | disposition home or self-care (01) ==
LOC: 3N 15:42 → ED 15:42 → 3N 18:04